=== PATIENT | female | born 1965 | race Hispanic/Latino ===

== ENCOUNTER 2020-12-15 13:09 | Emergency (ER) | payer BC ==
[2020-12-15] MEDS ORDERED: ONDANSETRON 4 MG/2 ML VIAL ONE (14:55)
[2020-12-15] MEDS ORDERED: METOCLOPRAMIDE 10 MG/2mL INJ ONE (14:55)
[2020-12-15] MEDS ORDERED: METHYLPREDNISOLONE 40 MG INJ ONE (14:56)
[2020-12-15] MEDS ORDERED: NA CHLORIDE 0.9% 500 ML ONE (14:56)
[2020-12-15 15:02] LABS: Absolute Lymphocytes (CBC) 1.2 K/uL (0.7-4.9); Basophils % 0.4 % (0-1.3); Hematocrit 42.6 % (36.0-45.0); Lymphocytes % 20.9 % (15.3-44.8); MPV 9.5 fL (7.6-11.3)
[2020-12-15 15:07] LABS: Protime INR 1.04
--- NOTE | 2020-12-15 15:17 | RAD REPORT ---
EXAM DESCRIPTION: RAD - Chest Single View - 12/15/2020 2:46 pm CLINICAL HISTORY: SOB, positive COVID test COMPARISON: None TECHNIQUE: AP portable chest image was obtained 12/15/2020 2:46 pm . FINDINGS: Lung volumes are low. Patchy interstitial and alveolar opacification present in the mid an d upper lung field on the left. There is trace right upper lobe airspace opacification. Trachea is mi dline. Heart and vasculature are normal. No measurable pleural effusion and no pneumothorax. No acute bony abnormality seen. No acute aortic findings suspected. IMPRESSION: Mild bilateral COVID-19 pneumonia pattern.
[2020-12-15 15:21] LABS: ALT/SGPT 37 U/L (12-78); AST/SGOT 44 U/L (15-37); Albumin 3.6 g/dL (3.4-5.0); Alkaline Phosphatase 147 U/L (45-117); BUN Blood Urea Nitrogen 9 mg/dL (7-18); Bicarbonate 29 mmol/L (21-32); Bilirubin Direct 0.1 mg/dL (0-0.2); Bilirubin Total 0.4 mg/dL (0.2-1.0); Glucose Level 97 mg/dL (74-106); Magnesium 2.4 mg/dL (1.8-2.4); NT PRO-BNP 29 pg/mL (<125); Potassium 3.1 mmol/L (3.5-5.1); Protein, Total 7.8 g/dL (6.4-8.2); Sodium Level 139 mmol/L (136-145); Troponin (Emerg Dept Use Only) < 0.02 ng/mL (0.0-0.045)
[2020-12-15] MEDS ORDERED: POTASSIUM 25 MEQ EFFERV TAB ONE (15:47)
[2020-12-15] MEDS ORDERED: CEFTRIAXONE/SWI 1gm 1 GM/10 ML SYR ONE (15:47)
--- NOTE | 2020-12-15 16:42 | RAD REPORT ---
EXAM DESCRIPTION: CT - Chest For Pe Angio - 12/15/2020 4:22 pm CLINICAL HISTORY: SOB COMPARISON: Chest Single View dated 12/15/2020 TECHNIQUE: Dynamically enhanced 3 mm thick images of the chest were obtained during administration o f approximately 150mL Isovue 370 IV contrast. Coronal and oblique MIP reconstruction images were gene rated and reviewed. Exam utilizes a protocol to evaluate the pulmonary arterial tree. All CT scans are performed using dose optimization technique as appropriate and may include automated exposure control or mA/KV adjustment according to patient size. FINDINGS: No pulmonary emboli are identified. The aorta as imaged shows no acute or suspicious finding. No pericardial thickening or effusion. Ground-glass opacities are scattered in the lung vergara matching the chest film. In the lateral mid r ight lung field (image 31/76) there is a more rounded nodular 10 millimeter finding. This is in all l ikelihood part of the patient's COVID-19 pneumonia findings. However, an unrelated solitary pulmonary nodule cannot be excluded. A follow-up examination in approximately 4-6 months could be performed to monitor this finding. This would allow resolution of the pneumonia findings. No pleural effusion or pleural thickening. No mediastinal or hilar suspicious masses. No chest wall masses or abnormal axillary lymphadenopathy. IMPRESSION: No pulmonary emboli identified. Mild to moderate COVID-19 pneumonia findings. A 10 millimeter nodular focus right midlung field is probably part of the pneumonia process. However, a discrete solitary pulmonary nodule cannot be excluded and follow-up CT chest imaging in 4-6 months would be recommended.
--- NOTE | 2020-12-15 17:17 | ER ---
Nurse's Notes [facility] Name: Latrice Reyes Age: 55 yrs Sex: Female : 1965 Arrival Date: 12/15/2020 Time: 13:14 Bed 6 Private MD: Diagnosis: Pneumonia due to other specified infectious organisms;Coronavirus infection, unspecified Presentation: 12/15 13:44 Chief complaint: Patient states: tested Covid+ yesterday at the urgent care. Symptoms ca1 started 12/10/2020. S/S diarrhea, N/V, headache, cough, SOB, fatigue, fever. S/S just getting worse. Coronavirus screen: Client denies travel out of the [place] in the last 14 days. Client reports previous positive COVID test result. Date of collection: December 14, 2020 Staff notified of need for isolation. Ebola Screen: Patient negative for fever greater than or equal to 101.5 degrees Fahrenheit, and additional compatible Ebola Virus Disease symptoms Patient denies exposure to infectious person. Patient denies travel to an Ebola-affected area in the 21 days before illness onset. No symptoms or risks identified at this time. Initial Sepsis Screen: Does the patient meet any 2 criteria? No. Patient's initial sepsis screen is negative. Does the patient have a suspected source of infection? No. Patient's initial sepsis screen is negative. Risk Assessment: Do you want to hurt yourself or someone else? Patient reports no desire to harm self or others. Onset of symptoms was December 15, 2020. 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 - Social history:: Smoking status: Patient denies any tobacco usage or history of. Screenin:58 Abuse screen: Denies threats or abuse. Denies injuries from another. Nutritional iw screening: No deficits noted. Tuberculosis screening: No symptoms or risk factors identified. Fall Risk IV access (20 points). Assessment: 14:57 General: Appears in no apparent distress. Behavior is calm, cooperative. General: iw Reports fever for feeling ill for. Pain: Complains of pain in head. Neuro: Level of Consciousness is awake, alert, obeys commands, Oriented to person, place, time, situation, Moves all extremities. Cardiovascular: Reports chest pain, shortness of breath, Rhythm is regular. Respiratory: Reports shortness of breath on exertion cough that is Airway is patent Respiratory effort is even, unlabored, Breath sounds are clear bilaterally. GI: Reports nausea, vomiting. Derm: Skin is intact, is healthy with good turgor. Musculoskeletal: Range of motion: intact in all extremities. 15:40 Reassessment: Patient appears in no apparent distress at this time. Patient and/or iw family updated on plan of care and expected duration. Pain level reassessed. Patient is alert, oriented x 3, equal unlabored respirations, skin warm/dry/pink. Vital Signs: 13:44 BP 137 / 95; Pulse 93; Resp 16 S; Temp 97.5; Pulse Ox 97% on R/A; Weight 84.37 kg (R); ca1 Height 5 ft. (152.40 cm) (R); 15:40 BP 124 / 98; Pulse 89; Resp 18 S; Pulse Ox 98% on R/A; iw 13:44 Body Mass Index 36.33 (84.37 kg, 152.40 cm) ca1 ED Course: 13:14 Patient arrived in ED. ag5 13:47 Triage completed. ca1 13:48 Arm band placed on right wrist. ca1 13:51 Loki Carty PA is PHCP. cp 13:51 Loki Esteves MD is Attending Physician. cp 14:46 XRAY Chest (1 view) In Process Unspecified. EDMS 14:55 Cat Robbins, RN is Primary Nurse. iw 14:58 Initial lab(s) drawn, by me, sent to lab. Inserted saline lock: 20 gauge in left iw antecubital area, using aseptic technique. Blood collected. 16:22 CT Chest For PE Angio In Process Unspecified. EDMS Administered Medications: 14:55 Drug: SOLU-Medrol 80 mg Route: IVP; Site: left antecubital; iw 14:56 Drug: Zofran (Ondansetron) 4 mg Route: IVP; Site: left antecubital; iw 14:56 Drug: Reglan 10 mg Route: IVP; Site: left antecubital; iw 14:56 Drug: NS 0.9% 500 ml Route: IV; Rate: bolus; Site: left antecubital; iw 15:43 Drug: Rocephin 1 grams Route: IV; Rate: calculated rate; Site: left antecubital; iw 16:00 Follow up: IV Status: Completed infusion iw 15:43 Drug: Potassium Effervescent Tablet 50 mEq Route: PO; iw 16:15 Follow up: Response: No adverse reaction iw 17:26 Not Given (Patient ): NS 0.9% 1000 ml IV at 1 bolus Per protocol; 1000 mL bolus cp Outcome: 17:17 Discharge ordered by MD. cp 17:36 Patient left the ED. iw Signatures: Dispatcher [employer] EDCat Kirkpatrick RN RN iw Page, Corey, PA PA cp Acob, Cheryl, RN RN ca1 Gaskin, Ajare ag5
--- NOTE | 2020-12-15 17:18 | EDPHYS ---
Physician Documentation [facility] Name: Latrice Reyes Age: 55 yrs Sex: Female : 1965 Arrival Date: 12/15/2020 Time: 13:14 Bed 6 Private MD: ED Physician Loki Esteves HPI: 12/15 14:10 This 55 yrs old Female presents to ER via Ambulatory with complaints of cp Shortness Of Breath, COVID+. 14:10 The patient has shortness of breath at rest. cp 14:10 Onset: The symptoms/episode began/occurred last week, and became worse today. cp 14:10 Duration: The symptoms are continuous, and are steadily getting worse. Associated signs cp and symptoms: Pertinent positives: chest pain, non-productive cough, fever, diarrhea, Pertinent negatives: diaphoresis, dizziness. Severity of symptoms: in the emergency department the symptoms are unchanged despite home interventions. Patient reports she tested positive for COVID-19 yesterday at local urgent care. Currently taking otc medications for cough. 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 - Social history:: Smoking status: Patient denies any tobacco usage or history of. ROS: 14:15 Constitutional: Negative for body aches, chills, fever, poor PO intake. cp 14:15 Eyes: Negative for injury, pain, redness, and discharge. cp 14:15 ENT: Negative for ear pain, sore throat, difficulty swallowing, difficulty handling secretions. 14:15 Cardiovascular: Positive for chest pain, with cough, Negative for edema, palpitations. 14:15 Respiratory: Positive for cough, "sounds productive", shortness of breath, at rest. Negative for wheezing. 14:15 Abdomen/GI: Positive for diarrhea, Negative for vomiting, constipation. 14:15 : Negative for urinary symptoms. 14:15 Skin: Negative for rash. 14:15 Neuro: Negative for altered mental status, headache, weakness. 14:15 All other systems are negative. Exam: 14:20 Constitutional: The patient appears in no acute distress, alert, awake, cp non-diaphoretic, non-toxic, well developed, well nourished. 14:20 Head/Face: Normocephalic, atraumatic. cp 14:20 Eyes: Periorbital structures: appear normal, Conjunctiva: normal, no exudate, no injection, Sclera: no appreciated abnormality, Lids and lashes: appear normal, bilaterally. 14:20 ENT: External ear(s): are unremarkable, Nose: is normal, Mouth: Lips: moist, Oral mucosa: pink and intact, moist, Posterior pharynx: Airway: no evidence of obstruction, patent, Tonsils: are normal in appearance, erythema, is not appreciated, exudate, is not appreciated. 14:20 Neck: ROM/movement: is normal, is supple, without pain, no range of motions limitations, no meningismus. 14:20 Chest/axilla: Inspection: normal, Palpation: is normal, no crepitus, no tenderness. 14:20 Cardiovascular: Rate: normal, Rhythm: regular, Edema: is not appreciated, JVD: is not appreciated. 14:20 Respiratory: the patient does not display signs of respiratory distress, Respirations: normal, no use of accessory muscles, no retractions, labored breathing, is not present, Breath sounds: bronchial sounds, that are mild, are heard diffusely, decreased breath sounds, are not appreciated, wheezing: is not appreciated. 14:20 Abdomen/GI: Inspection: abdomen appears normal, Palpation: abdomen is soft and non-tender, in all quadrants. 14:20 Back: pain, is absent, ROM is normal. 14:20 Neuro: Orientation: to person, place \\T\\ time. Mentation: is normal, Motor: moves all fours, strength is normal. 14:40 ECG was reviewed by the Attending Physician. cp Vital Signs: 13:44 BP 137 / 95; Pulse 93; Resp 16 S; Temp 97.5; Pulse Ox 97% on R/A; Weight 84.37 kg (R); ca1 Height 5 ft. (152.40 cm) (R); 15:40 BP 124 / 98; Pulse 89; Resp 18 S; Pulse Ox 98% on R/A; iw 13:44 Body Mass Index 36.33 (84.37 kg, 152.40 cm) ca1 MDM: 13:56 Patient medically screened. cp 15:00 Differential diagnosis: Bronchitis Myocardial Infarction pneumonia, pulmonary edema, cp Pulmonary Embolism Sepsis Unstable Angina. 17:15 Data reviewed: vital signs, nurses notes, lab test result(s), EKG, radiologic studies, cp CT scan, plain films. 17:15 Test interpretation: by ED physician or midlevel provider: ECG, plain radiologic cp studies. Counseling: I had a detailed discussion with the patient and/or guardian regarding: the historical points, exam findings, and any diagnostic results supporting the discharge/admit diagnosis, lab results, radiology results, the need for outpatient follow up, a family practitioner, to return to the emergency department if symptoms worsen or persist or if there are any questions or concerns that arise at home. Response to treatment: the patient's symptoms have markedly improved after treatment. ED course: VSS. Patient appears nontoxic and no signs of respiratory distress. Oxygen sats 98% on RA after treatment. Will discharge to home for continued monitoring. 12/15 14:08 Order name: Basic Metabolic Panel 12/15 14:08 Order name: CBC with Diff; Complete Time: 15:08 12/15 14:08 Order name: LFT's; Complete Time: 15:23 12/15 15:29 Interpretation: Normal except: AST 44; ALK 147; GLOB 4.2; A/G 0.9. 12/15 14:08 Order name: Magnesium; Complete Time: 15:23 12/15 14:08 Order name: NT PRO-BNP; Complete Time: 15:23 12/15 14:08 Order name: PT-INR; Complete Time: 15:21 12/15 14:08 Order name: Troponin (emerg Dept Use Only); Complete Time: 15:23 12/15 14:08 Order name: XRAY Chest (1 view); Complete Time: 15:21 12/15 15:21 Interpretation: Report reviewed. 12/15 14:09 Order name: Basic Metabolic Panel; Complete Time: 15:23 EDID 12/15 15:29 Interpretation: Normal except: K 3.1; GFR 64. 12/15 15:26 Order name: D-Dimer; Complete Time: 16:58 cp 12/15 15:26 Order name: LAB Add On 12/15 15:59 Order name: CT Chest For PE Angio; Complete Time: 16:58 cp 12/15 14:08 Order name: EKG; Complete Time: 14:09 cp 12/15 14:08 Order name: Cardiac monitoring; Complete Time: 14:56 cp 12/15 14:08 Order name: EKG - Nurse/Tech; Complete Time: 14:57 cp 12/15 14:08 Order name: IV Saline Lock; Complete Time: 14:57 cp 12/15 14:08 Order name: Labs collected and sent; Complete Time: 14:57 cp 12/15 14:08 Order name: O2 Per Protocol; Complete Time: 14:57 cp 12/15 14:08 Order name: O2 Sat Monitoring; Complete Time: 14:57 cp 12/15 17:11 Order name: Diet Regular; Complete Time: 17:11 cp EC:40 Rate is 83 beats/min. Rhythm is regular. AK interval is normal. QRS interval is normal. cp T waves are Inverted in leads III, aVR. Interpreted by me. Reviewed by me. Administered Medications: 14:55 Drug: SOLU-Medrol 80 mg Route: IVP; Site: left antecubital; iw 14:56 Drug: Zofran (Ondansetron) 4 mg Route: IVP; Site: left antecubital; iw 14:56 Drug: Reglan 10 mg Route: IVP; Site: left antecubital; iw 14:56 Drug: NS 0.9% 500 ml Route: IV; Rate: bolus; Site: left antecubital; iw 15:43 Drug: Rocephin 1 grams Route: IV; Rate: calculated rate; Site: left antecubital; iw 16:00 Follow up: IV Status: Completed infusion iw 15:43 Drug: Potassium Effervescent Tablet 50 mEq Route: PO; iw 16:15 Follow up: Response: No adverse reaction iw 17:26 Not Given (Patient ): NS 0.9% 1000 ml IV at 1 bolus Per protocol; 1000 mL bolus cp Disposition: 12/16 06:25 Co-signature as Attending Physician, Loki TERRY I agree with the assessment and lucia plan of care. Disposition: 12/15/20 17:17 Discharged to Home. Impression: Pneumonia due to other specified infectious organisms, Coronavirus infection, unspecified. - Condition is Stable. - Discharge Instructions: Community-Acquired Pneumonia, Adult, COVID-19. - Prescriptions for Augmentin 875- 125 mg Oral Tablet - take 1 tablet by ORAL route every 12 hours for 10 days; 20 tablet. Albuterol Sulfate 2.5 mg /3 mL (0.083 %) Inhalation Solution for Nebulization - inhale 1 unit by NEBULIZATION route every 8 hours As needed; 1 box. Prednisone 20 mg Oral Tablet - take 1 tablet by ORAL route every 12 hours for 5 days then take 1/2 tablet every 12 hours for 5 days; 15 tablet. - Medication Reconciliation Form, Thank You Letter, Antibiotic Education, Prescription Opioid Use form. - Follow up: Private Physician; When: 2 - 3 days; Reason: Worsening of condition. - Problem is new. - Symptoms have improved. Signatures: Dispatcher [employer] EDMS Loik Esteves MD MD cha Williams, Irene, RN RN Loki Yepez PA PA cp Mitali Alejandro RN RN ca1 Corrections: (The following items were deleted from the chart) 12/15 17:36 17:17 12/15/2020 17:17 Discharged to Home. Impression: Pneumonia due to other specified iw infectious organisms; Coronavirus infection, unspecified. Condition is Stable. Forms are Medication Reconciliation Form, Thank You Letter, Antibiotic Education, Prescription Opioid Use. Follow up: Private Physician; When: 2 - 3 days; Reason: Worsening of condition. Problem is new. Symptoms have improved. cp
[2020-12-15] MEDS ORDERED: NA CHLORIDE 0.9% 1,000 ML ONE (17:37)
[2020-12-15 17:41] VITALS: TEMP 97.5
[2020-12-15 17:42] VITALS: BP 124/98; O2SAT 98
--- NOTE | 2020-12-16 12:11 | EKG ---
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
== END 2020-12-15 17:36 | disposition home or self-care (01) ==
LOC: ER 13:09
DX: U07.1 COVID-19 (principal); J12.82 Pneumonia due to coronavirus disease 2019
CPT/HCPCS: 96365; 93005; 85025; 80048; 36415; 83735; 85610; 85379; 80076; 84484; 83880; 71275; 71045; 96375; 99284; Q9967; J2765; J0696; J7040; J7030; J2405; J2920

== ENCOUNTER 2020-12-18 06:11 | Inpatient (IN) | payer BC ==
--- OUTSIDE RECORDS SUMMARY | 2020-12-18 06:14 | XMS REPORT | Clinical Summary ---
:1965 Author Organization [facility] Address [address] [place] [address] Care Team Providers Name Role Phone Conrad Delgado MD Primary Care Provider Allergies No Known Allergies Medications Medication Sig Dispensed Refills Start Date End Date Status thyroid, pork, 30 mg Take 30 mg by 0 Active Tab mouth daily. estrogens, Take 1 tablet by 0 Ac tive conjugated,-methyltest mouth daily. osterone (ESTRATEST) 1.25-2.5 mg per tablet Active Problems Not on file Social History Tobacco Use Types Packs/Day Years Used Date Never Smoker Alcohol Use Drinks/Week oz/Week Comments No Sex Assigned at Date Recorded Not on file Last Filed Vital Signs Not on file Plan of Treatment Not on file Results Not on fileafter 12/18/2019 Insurance Payer Benefit Plan / Subscriber ID Effective Dates Phone Addre ss Type Group BLUE BCBS PPO POS [id number] 2015-Prese [phone] [id number] PPO CROSS/BLUE EPO CHOICE nt 2 [facility] [id number] (Work) [id number]
[2020-12-18 07:12] LABS: Basophils % 0.3 % (0-1.3); Hematocrit 39.9 % (36.0-45.0); Lymphocytes % 17.3 % (15.3-44.8); MPV 9.1 fL (7.6-11.3); RBC Red Blood Cell Count 4.47 M/uL (3.86-4.86)
[2020-12-18 07:14] LABS: Protime INR 0.99
[2020-12-18] MEDS ORDERED: ASPIRIN 81 MG CHEWABLE TABLET ONE (07:30)
[2020-12-18] MEDS ORDERED: CEFTRIAXONE/SWI 1gm 1 GM/10 ML SYR ONE (07:30)
[2020-12-18] MEDS ORDERED: FAMOTIDINE 20 MG/2 ML VIAL IV ONE (07:30)
[2020-12-18] MEDS ORDERED: ALBUTEROL INHALER 60 PUFF/8 GM IH ONE (07:30)
[2020-12-18] MEDS ORDERED: dexAMETHasone 10 MG/ML VIAL ONE (07:30)
--- NOTE | 2020-12-18 07:30 | EDPHYS ---
Physician Documentation [facility] Name: Latrice Reyes Age: 55 yrs Sex: Female : 1965 Arrival Date: 12/18/2020 Time: 06:15 Bed 14 Private MD: MARIS Physician Loki Esteves HPI: 12/18 07:23 This 55 yrs old Female presents to ER via Ambulatory with complaints of lucia Breathing Difficulty, Diarrhea, +covid test,pneumonia. 07:23 The patient has shortness of breath at rest. Onset: The symptoms/episode began/occurred lucia 4 day(s) ago. Duration: The symptoms are continuous, and are steadily getting worse. The patient's shortness of breath is aggravated by coughing, supine position, talking, walking, is alleviated by rest, sitting up, application of supplemental oxygen. Associated signs and symptoms: The patient has no apparent associated signs or symptoms. Severity of symptoms: At their worst the symptoms were moderate today. The patient has not experienced similar symptoms in the past. STONE HAND: 08:09 LMP N/A - Hysterectomy jl7 Historical: - Allergies: 06:22 No Known Allergies; sg - Home Meds: 06:22 Wellbutrin Oral [Active]; sg - PMHx: 06:22 Depression; sg - PSHx: 06:21 Spine Surgery; Hysterectomy; Cholecystectomy; Hernia repair; sg - Immunization history:: Adult Immunizations not up to date. - Social history:: Smoking status: Patient denies any tobacco usage or history of. - Family history:: not pertinent. ROS: 07:23 Constitutional: Negative for fever, chills, and weight loss, Eyes: Negative for injury, lucia pain, redness, and discharge, ENT: Negative for injury, pain, and discharge, Neck: Negative for injury, pain, and swelling, Cardiovascular: Negative for chest pain, palpitations, and edema, Abdomen/GI: Negative for abdominal pain, nausea, vomiting, diarrhea, and constipation, Back: Negative for injury and pain, : Negative for injury, bleeding, discharge, and swelling, MS/Extremity: Negative for injury and deformity, Skin: Negative for injury, rash, and discoloration, Neuro: Negative for headache, weakness, numbness, tingling, and seizure, Psych: Negative for depression, anxiety, suicide ideation, homicidal ideation, and hallucinations, Allergy/Immunology: Negative for hives, rash, and allergies, Endocrine: Negative for neck swelling, polydipsia, polyuria, polyphagia, and marked weight changes. 07:23 Respiratory: Positive for cough, shortness of breath, at rest. 07:23 Abdomen/GI: Positive for diarrhea. Exam: 07:23 Constitutional: This is a well developed, well nourished patient who is awake, alert, lucia and in no acute distress. Head/Face: Normocephalic, atraumatic. Eyes: Pupils equal round and reactive to light, extra-ocular motions intact. Lids and lashes normal. Conjunctiva and sclera are non-icteric and not injected. Cornea within normal limits. Periorbital areas with no swelling, redness, or edema. ENT: Nares patent. No nasal discharge, no septal abnormalities noted. Tympanic membranes are normal and external auditory canals are clear. Oropharynx with no redness, swelling, or masses, exudates, or evidence of obstruction, uvula midline. Mucous membranes moist. Neck: Trachea midline, no thyromegaly or masses palpated, and no cervical lymphadenopathy. Supple, full range of motion without nuchal rigidity, or vertebral point tenderness. No Meningismus. Chest/axilla: Normal chest wall appearance and motion. Nontender with no deformity. No lesions are appreciated. Cardiovascular: Regular rate and rhythm with a normal S1 and S2. No gallops, murmurs, or rubs. Normal PMI, no JVD. No pulse deficits. Abdomen/GI: Soft, non-tender, with normal bowel sounds. No distension or tympany. No guarding or rebound. No evidence of tenderness throughout. Back: No spinal tenderness. No costovertebral tenderness. Full range of motion. Skin: Warm, dry with normal turgor. Normal color with no rashes, no lesions, and no evidence of cellulitis. MS/ Extremity: Pulses equal, no cyanosis. Neurovascular intact. Full, normal range of motion. Neuro: Awake and alert, GCS 15, oriented to person, place, time, and situation. Cranial nerves II-XII grossly intact. Motor strength 5/5 in all extremities. Sensory grossly intact. Cerebellar exam normal. Normal gait. Psych: Awake, alert, with orientation to person, place and time. Behavior, mood, and affect are within normal limits. 07:23 ECG was reviewed by the Attending Physician. 07:23 Respiratory: mild respiratory distress is noted, Respirations: labored breathing, that is mild, Breath sounds: bronchial sounds, rhonchi, that are mild, are heard diffusely, + upper airway congestion. wheezing: expiratory Respiratory rate: 24 Vital Signs: 06:32 BP 148 / 78; Pulse 83; Resp 22; Temp 98.2; Pulse Ox 93% on R/A; 07:43 BP 127 / 66; Pulse 83; Resp 25; Pulse Ox 100% 2 lpm ; Weight 84.37 kg; jl7 09:00 BP 130 / 64; Pulse 81; Resp 24; Pulse Ox 99% 2 lpm ; jl7 10:00 BP 112 / 72; Pulse 81; Resp 24; Pulse Ox 99% on 2 lpm NC; jl7 11:30 BP 110 / 54; Pulse 84; Resp 23; Pulse Ox 97% on 2 lpm NC; 7 14:36 Height 5 ft. (152.40 cm); 7 14:36 Body Mass Index 36.33 (84.37 kg, 152.40 cm) 7 MDM: 06:34 Patient medically screened. lucia 07:26 Differential diagnosis: CHF exacerbation, pneumonia, pulmonary edema, Pulmonary lucia Embolism reactive airway disease. Antibiotic administration: Rocephin and Zithromax given. The patient's Wells Deep Vein Thrombosis Score was calculated as follows: Total Score: 0-2 Pts- Low Risk. The patient's pulmonary embolism risk score was calculated as follows: Total Score: 0-2 points. This patient was found to be at low risk for a pulmonary embolism by using the Well's assessment criteria. Immunization status: Influenza vaccine: Data reviewed: vital signs, nurses notes, lab test result(s), EKG, radiologic studies, CT scan, plain films. Data interpreted: electronic device monitor: rate is 83 beats/min, rhythm is regular, Pulse oximetry: on room air is 93 %. Test interpretation: by ED physician or midlevel provider: ECG, plain radiologic studies. Counseling: I had a detailed discussion with the patient and/or guardian regarding: the historical points, exam findings, and any diagnostic results supporting the discharge/admit diagnosis, lab results, radiology results, the need for further work-up and treatment in the hospital. 12/18 06:46 Order name: Basic Metabolic Panel [facility] 12/18 06:46 Order name: CBC with Diff [facility] 12/18 06:46 Order name: LFT's [facility] 12/18 06:46 Order name: Magnesium [facility] 12/18 06:46 Order name: NT PRO-BNP [facility] 12/18 06:46 Order name: PT-INR [facility] 12/18 06:46 Order name: Troponin (emerg Dept Use Only) [facility] 12/18 06:46 Order name: Blood Culture Adult (2) [facility] 12/18 06:46 Order name: Urine Culture [facility] 12/18 06:46 Order name: Lipase [facility] 12/18 06:46 Order name: Ferritin [facility] 12/18 06:46 Order name: CRP [facility] 12/18 07:15 Order name: CBC with Automated Diff; Complete Time: 07:22 EDMS 12/18 07:16 Order name: Protime (+INR); Complete Time: 07:22 EDMS 12/18 06:46 Order name: XRAY Chest (1 view) [facility] 12/18 07:41 Order name: Urine Dipstick--Ancillary (enter results) 12/18 07:47 Order name: Basic Metabolic Panel; Complete Time: 08:27 EDMS 12/18 07:47 Order name: Liver (Hepatic) Function; Complete Time: 08:27 EDMS 12/18 07:47 Order name: Troponin (Emerg Dept Use Only); Complete Time: 08:27 EDMS 12/18 07:47 Order name: NT PRO-BNP; Complete Time: 08:27 EDMS 12/18 07:47 Order name: C-Reactive Protein; Complete Time: 08:27 EDMS 12/18 07:47 Order name: Magnesium; Complete Time: 08:27 EDMS 12/18 07:47 Order name: Lipase; Complete Time: 08:27 EDMS 12/18 07:47 Order name: Ferritin; Complete Time: 08:27 EDMS 12/18 08:49 Order name: Urine Dipstick-Ancillary EDMT 12/18 09:39 Order name: RAD EDMT 12/18 10:57 Order name: Procalcitonin EDMT 12/18 15:46 Order name: Glucose, Ancillary Testing EDMS 12/18 17:47 Order name: Glucose, Ancillary Testing EDMT 12/18 06:46 Order name: EKG; Complete Time: 06:47 [facility] 12/18 06:46 Order name: Cardiac monitoring; Complete Time: 07:05 [facility] 12/18 06:46 Order name: EKG - Nurse/Tech; Complete Time: 07:05 [facility] 12/18 06:46 Order name: IV Saline Lock; Complete Time: 07:05 [facility] 12/18 06:46 Order name: Labs collected and sent; Complete Time: 07:05 [facility] 12/18 06:46 Order name: O2 Per Protocol; Complete Time: 07:05 [facility] 12/18 06:46 Order name: O2 Sat Monitoring; Complete Time: 07:05 [facility] 12/18 06:46 Order name: Urine Dipstick-Ancillary (obtain specimen); Complete Time: 09:46 [facility] 12/18 13:50 Order name: Diet Ada 2000 [place]; Complete Time: 13:50 [facility] EC:23 Rate is 85 beats/min. Rhythm is regular. QRS [place] is Normal. WA interval is normal. QRS lucia interval is normal. QT interval is normal. No Q waves. T waves are Normal. No ST changes noted. Clinical impression: Normal ECG and No evidence of ischemia. Interpreted by me. Reviewed by me. Administered Medications: 07:20 Drug: NS 0.9% 1000 ml Route: IV; Rate: 1 bolus; Site: right antecubital; jl7 08:45 Follow up: Response: No adverse reaction; IV Status: Completed infusion; IV Intake: jl7 1000ml 07:20 Drug: Rocephin 1 grams Route: IV; Rate: per protocol; Site: right antecubital; jl7 07:23 Follow up: Response: No adverse reaction; IV Status: Completed infusion jl7 07:25 Drug: Decadron - Dexamethasone 10 mg Route: IVP; Site: right antecubital; jl7 07:27 Follow up: Response: No adverse reaction jl7 07:28 Drug: Aspirin 162 mg Route: PO; jl7 07:30 Follow up: Response: No adverse reaction jl7 07:30 Drug: Pepcid 20 mg Route: IVP; Site: right antecubital; jl7 07:32 Follow up: Response: No adverse reaction jl7 07:35 Drug: Albuterol HFA Inhaler 4 puffs Route: Inhalation; jl7 07:37 Follow up: Response: No adverse reaction jl7 09:43 Drug: NS 0.9% with KCl 20 mEq/L 1000 ml Route: IV; Rate: 125 ml/hr; Site: left hand; jl7 13:50 Follow up: Response: No adverse reaction; IV Status: Infusion continued upon admission jl7 09:44 Drug: Zithromax 500 mg Route: IVPB; Infused Over: 1 hrs; Site: left hand; jl7 10:45 Follow up: Response: No adverse reaction; IV Status: Completed infusion jl7 09:44 Drug: Ivermectin 12 mg Route: PO; jl7 13:50 Follow up: Response: No adverse reaction jl7 09:45 Drug: Lovenox 1 mg/kg Route: Sub-Q; Site: abdomen; jl7 13:50 Follow up: Response: No adverse reaction [facility] Disposition: 12/18/20 07:30 Hospitalization ordered by Narayan Ferro for Observation. Preliminary diagnosis are Dyspnea, Hypoxemia, SARS-associated coronavirus as the cause of diseases classified elsewhere - covid 19, Diarrhea, unspecified, Hypokalemia. - Bed requested for Telemetry/MedSurg (observation). - Status is Observation. lp1 - Condition is Fair. - Problem is new. - Symptoms have improved. Signatures: Dispatcher [employer] EDMS Kristel Friedman RN Indra Solomon RN RN sg Anderson, Corey, MD MD cha Pena, Laura RN HAMMAD lp1 Dwight Martínez RN RN jl7 Jennifer Lopez Corrections: (The following items were deleted from the chart) 07:36 07:30 Hospitalization Ordered by Narayan Ferro MD for Inpatient Admission. Preliminary [facility] diagnosis is Dyspnea; Hypoxemia; SARS-associated coronavirus as the cause of diseases classified elsewhere - covid 19; Diarrhea, unspecified. Bed requested for Telemetry/MedSurg (Inpatient). Status is Inpatient Admission. Condition is Fair. Problem is new. Symptoms have improved. [facility] 08:30 07:36 12/18/2020 07:30 Hospitalization Ordered by Narayan Ferro MD for Observation. [facility] Preliminary diagnosis is Dyspnea; Hypoxemia; SARS-associated coronavirus as the cause of diseases classified elsewhere - covid 19; Diarrhea, unspecified. Bed requested for Telemetry/MedSurg (observation). Status is Observation. Condition is Fair. Problem is new. Symptoms have improved. [facility] 09:47 06:46 Urine Test ordered. [place] [id number] 14:25 08:30 12/18/2020 07:30 Hospitalization Ordered by Narayan Ferro MD for Observation. eb Preliminary diagnosis is Dyspnea; Hypoxemia; SARS-associated coronavirus as the cause of diseases classified elsewhere - covid 19; Diarrhea, unspecified; Hypokalemia. Bed requested for Telemetry/MedSurg (observation). Status is Observation. Condition is Fair. Problem is new. Symptoms have improved. lucia 18:56 14:25 12/18/2020 07:30 Hospitalization Ordered by Narayan Ferro MD for Observation. sv Preliminary diagnosis is Dyspnea; Hypoxemia; SARS-associated coronavirus as the cause of diseases classified elsewhere - covid 19; Diarrhea, unspecified; Hypokalemia. Bed requested for [facility] ER HOLD. Status is Observation. Condition is Fair. Problem is new. Symptoms have improved. eb 19:57 18:56 12/18/2020 07:30 Hospitalization Ordered by Narayan Ferro MD for Observation. lp1 Preliminary diagnosis is Dyspnea; Hypoxemia; SARS-associated coronavirus as the cause of diseases classified elsewhere - covid 19; Diarrhea, unspecified; Hypokalemia. Bed requested for Telemetry/MedSurg (observation). Status is Observation. Condition is Fair. Problem is new. Symptoms have improved. sv
--- NOTE | 2020-12-18 07:30 | ER ---
Nurse's Notes [facility] Name: Latrice Reyes Age: 55 yrs Sex: Female : 1965 Arrival Date: 12/18/2020 Time: 06:15 Bed 14 Private MD: Diagnosis: Dyspnea;Hypoxemia;SARS-associated coronavirus as the cause of diseases classified elsewhere-covid 19;Diarrhea, unspecified;Hypokalemia Presentation: 12/18 06:19 Chief complaint: Seen and dx with pneumonia on 12-15-20 and discharged to home with sg medications. reports shortness of breath continues, experiencing diarrhea as well. Coronavirus screen: Client presents with at least one sign or symptom that may indicate coronavirus-19. Standard/surgical mask placed on the client. Provider contacted for isolation considerations. Client reports previous positive COVID test result. Date of collection: December 14, 2020. Ebola Screen: Patient negative for fever greater than or equal to 101.5 degrees Fahrenheit, and additional compatible Ebola Virus Disease symptoms Patient denies exposure to infectious person. Patient denies travel to an Ebola-affected area in the 21 days before illness onset. No symptoms or risks identified at this time. Initial Sepsis Screen:. Initial Sepsis Screen: Does the patient meet any 2 criteria? RR > 20 per min. Does the patient have a suspected source of infection? Yes: Productive cough/pneumonia. Risk Assessment: Do you want to hurt yourself or someone else? Patient reports no desire to harm self or others. Onset of symptoms was December 18, 2020. Care prior to arrival: None. Transition of care: patient was not received from another setting of care. 06:19 Acuity: YEYO 3 06:19 Method Of Arrival: Ambulatory 06:27 Note reports home o2 readings of 88%. sg Triage Assessment: 06:34 Respiratory: Onset: The symptoms/episode began/occurred gradually, the patient has mild wh shortness of breath. 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 - Social history:: Smoking status: Patient denies any tobacco usage or history of. - Family history:: not pertinent. Screenin:32 Abuse screen: Denies threats or abuse. Denies injuries from another. Nutritional wh screening: No deficits noted. Tuberculosis screening: No symptoms or risk factors identified. Fall Risk None identified. Assessment: 06:33 General: Appears in no apparent distress. Behavior is calm, cooperative, appropriate wh for age. Pain: Denies pain. Neuro: Level of Consciousness is awake, alert, obeys commands, Oriented to person, place, time, situation, Appropriate for age. Cardiovascular: Heart tones S1 S2 Rhythm is regular. Respiratory: Reports shortness of breath cough that is Airway is patent Respiratory effort is unlabored, Respiratory pattern is tachypnea Breath sounds are clear bilaterally. GI: Abdomen is flat, non-distended, Reports diarrhea. : No signs and/or symptoms were reported regarding the genitourinary system. EENT: No signs and/or symptoms were reported regarding the EENT system. Derm: Skin is intact, is healthy with good turgor, Skin is pink, warm \T\ dry. normal. Musculoskeletal: Circulation, motion, and sensation intact. 07:30 Reassessment: Patient appears in no apparent distress at this time. No changes from jl7 previously documented assessment. Patient and/or family updated on plan of care and expected duration. Pain level reassessed. Patient is alert, oriented x 3, equal unlabored respirations, skin warm/dry/pink. 09:00 Reassessment: Patient appears in no apparent distress at this time. No changes from jl7 previously documented assessment. Patient and/or family updated on plan of care and expected duration. Pain level reassessed. Patient is alert, oriented x 3, equal unlabored respirations, skin warm/dry/pink. 10:00 Reassessment: Patient appears in no apparent distress at this time. No changes from jl7 previously documented assessment. Patient and/or family updated on plan of care and expected duration. Pain level reassessed. Patient is alert, oriented x 3, equal unlabored respirations, skin warm/dry/pink. 11:00 Reassessment: Patient appears in no apparent distress at this time. No changes from jl7 previously documented assessment. Patient and/or family updated on plan of care and expected duration. Pain level reassessed. Patient is alert, oriented x 3, equal unlabored respirations, skin warm/dry/pink. 12:00 Reassessment: Patient appears in no apparent distress at this time. No changes from 7 previously documented assessment. Patient and/or family updated on plan of care and expected duration. Pain level reassessed. Patient is alert, oriented x 3, equal unlabored respirations, skin warm/dry/pink. 13:00 Reassessment: Patient appears in no apparent distress at this time. No changes from 7 previously documented assessment. Patient and/or family updated on plan of care and expected duration. Pain level reassessed. Patient is alert, oriented x 3, equal unlabored respirations, skin warm/dry/pink. Vital Signs: 06:32 BP 148 / 78; Pulse 83; Resp 22; Temp 98.2; Pulse Ox 93% on R/A; wh 07:43 BP 127 / 66; Pulse 83; Resp 25; Pulse Ox 100% 2 lpm ; Weight 84.37 kg; jl7 09:00 BP 130 / 64; Pulse 81; Resp 24; Pulse Ox 99% 2 lpm ; jl7 10:00 BP 112 / 72; Pulse 81; Resp 24; Pulse Ox 99% on 2 lpm NC; jl7 11:30 BP 110 / 54; Pulse 84; Resp 23; Pulse Ox 97% on 2 lpm NC; jl7 14:36 Height 5 ft. (152.40 cm); jl7 14:36 Body Mass Index 36.33 (84.37 kg, 152.40 cm) 7 ED Course: 06:15 Patient arrived in ED. es 06:20 Triage completed. sg 06:21 Arm band placed on. sg 06:32 Aparna Carlisle, RN is Primary Nurse. wh 06:34 Loki Esteves MD is Attending Physician. lucia 06:34 Patient has correct armband on for positive identification. Placed in gown. Bed in low wh position. Call light in reach. Side rails up X 1. Pulse ox on. NIBP on. 07:16 Primary Nurse role handed off by Aparna Carlisle, HAMMAD eb 07:29 Narayan Ferro MD is Hospitalizing Provider. lucia 07:39 Dwight Martínez RN is Primary Nurse. 7 08:10 No provider procedures requiring assistance completed. Patient admitted, IV remains in jl7 place. intact, No redness/swelling at site. Administered Medications: 07:20 Drug: NS 0.9% 1000 ml Route: IV; Rate: 1 bolus; Site: right antecubital; jl7 08:45 Follow up: Response: No adverse reaction; IV Status: Completed infusion; IV Intake: jl7 1000ml 07:20 Drug: Rocephin 1 grams Route: IV; Rate: per protocol; Site: right antecubital; jl7 07:23 Follow up: Response: No adverse reaction; IV Status: Completed infusion jl7 07:25 Drug: Decadron - Dexamethasone 10 mg Route: IVP; Site: right antecubital; jl7 07:27 Follow up: Response: No adverse reaction jl7 07:28 Drug: Aspirin 162 mg Route: PO; jl7 07:30 Follow up: Response: No adverse reaction jl7 07:30 Drug: Pepcid 20 mg Route: IVP; Site: right antecubital; jl7 07:32 Follow up: Response: No adverse reaction jl7 07:35 Drug: Albuterol HFA Inhaler 4 puffs Route: Inhalation; jl7 07:37 Follow up: Response: No adverse reaction jl7 09:43 Drug: NS 0.9% with KCl 20 mEq/L 1000 ml Route: IV; Rate: 125 ml/hr; Site: left hand; jl7 13:50 Follow up: Response: No adverse reaction; IV Status: Infusion continued upon admission jl7 09:44 Drug: Zithromax 500 mg Route: IVPB; Infused Over: 1 hrs; Site: left hand; jl7 10:45 Follow up: Response: No adverse reaction; IV Status: Completed infusion jl7 09:44 Drug: Ivermectin 12 mg Route: PO; jl7 13:50 Follow up: Response: No adverse reaction jl7 09:45 Drug: Lovenox 1 mg/kg Route: Sub-Q; Site: abdomen; jl7 13:50 Follow up: Response: No adverse reaction jl7 Intake: 08:45 IV: 1000ml; Total: 1000ml. jl7 Outcome: 07:30 Decision to Hospitalize by Provider. [facility] 11:30 Condition: stable [facility] 11:30 Discharge instructions given to patient, Instructed on the need for admit, Demonstrated understanding of instructions. 13:59 Admitted to ER Hold. Please see [facility] for further documentation. jl7 19:57 Patient left the ED. lp1 Signatures: Indra Moran RN RN sg Loki Esteves MD MD cha Salyer, Edna es Pena, Laura RN RN lp1 Dwight Martínez RN RN jl7 Aparna Carlisle RN RN Jennifer Lopez Corrections: (The following items were deleted from the chart) 06:22 06:19 Coronavirus screen: Client presents with at least one sign or symptom that may sg indicate coronavirus-19. Standard/surgical mask placed on the client. Provider contacted for isolation considerations. Client reports previous positive COVID test result. 06:34 06:32 BP 148 / 78; Pulse 83bpm; Resp 20bpm; Pulse Ox 93% RA; Temp 98.2F; [facility] 13:59 11:30 Admitted to ER Hold. Please see [facility] for further documentation. jl7 jl7
[2020-12-18] MEDS ORDERED: NA CHLORIDE 0.9% 1,000 ML ONE (07:31)
[2020-12-18 07:46] LABS: ALT/SGPT 45 U/L (12-78); AST/SGOT 43 U/L (15-37); Albumin 3.2 g/dL (3.4-5.0); Alkaline Phosphatase 112 U/L (45-117); BUN Blood Urea Nitrogen 7 mg/dL (7-18); Bicarbonate 32 mmol/L (21-32); Bilirubin Direct 0.2 mg/dL (0-0.2); Bilirubin Total 0.5 mg/dL (0.2-1.0); Ferritin 157.1 ng/mL (8-388); Glucose Level 99 mg/dL (74-106); Lipase 41 U/L (73-393); Magnesium 2.2 mg/dL (1.8-2.4); NT PRO-BNP 91 pg/mL (<125); Potassium 3.3 mmol/L (3.5-5.1); Protein, Total 7.7 g/dL (6.4-8.2); Sodium Level 143 mmol/L (136-145); Troponin (Emerg Dept Use Only) < 0.02 ng/mL (0.0-0.045)
[2020-12-18] MEDS ORDERED: IVERMECTIN 3 MG TABLET PO ONE (08:00)
[2020-12-18] MEDS ORDERED: AZITHROMYCIN IV 500 MG in NA CHLORIDE 0.9% 250 ML IVPB ONE (08:00)
[2020-12-18] MEDS ORDERED: ENOXAPARIN 80 MG/0.8 ML SQ ONE (08:01)
[2020-12-18 08:49] LABS: Urine Blood 1+ (NEG); Urine Glucose NEGATIVE (NEG); Urine Protein 2+ (NEG); Urine Specific Gravity 1.025 (1.005-1.030); Urine pH 6.5 (5.0-7.0)
--- NOTE | 2020-12-18 09:06 | P.HP ---
Certification for Inpatient Patient admitted to: Observation With expected LOS: <2 Midnights Practitioner: I am a practitioner with admitting privileges, knowledge of patient current condition, hospital course, and medical plan of care. Services: Services provided to patient in accordance with Admission requirements found in Title 42 Section 412.3 of the Code of Federal Regulations Patient History Date of Service: 12/18/20 Reason for admission: hypoxia, COVID-19 pneumonia History of Present Illness: 55yo presents to ED a 2nd time this week with SOB/AGUILAR. COVid+ recently with worsening symptoms. Very short of breath with short ambulation. Feels like she can't take few steps without getting very winded. She reports she had elevated back in September and had mild symptoms with mostly diarrhea. Her entire family tested positive had similar courses. Now over the past week her in her entire family are now having more respiratory symptoms of coverage, and have all tested positive once again. Unclear if this is a reinfection/new infection. Patient had some improvement of symptoms when placed on O2 in ED. Labwork notable for mild hypokalemia, elevated CRP at 80, mildly elevated pro calcitonin. Patient reports diarrhea for the past few days as well. Denies dysuria, denies abdominal pain, denies chest pain. CXR with bilateral interstitial pulmonary opacities suggestive of COVID. The patient had a CTA done on 12/15 with negative PE, mild-moderate COVID pneumonia findings Allergies No Known Allergies Allergy (Unverified 12/18/20 07:43) Home Medications: Bupropion HCl [Wellbutrin Sr] 100 mg PO DAILY 12/18/20 Cholecalciferol (Vitamin D3) [Vitamin D3] 2,000 unit PO DAILY 12/18/20 - Past Medical/Surgical History -: Insulin resistance -: Depression -: Chronic back pain -: Hysterectomy -: -: Foot surgery -: "Back surgery" -: tummy tuck -: breast augmentation - Family History Family History: Reviewed- Non-Contributory - Family History Mother History Unknown: Yes -: Diabetes, Other (see notes) Notes: Thyroid Father History Unknown: Yes -: Diabetes Notes: Thyroid - Social History Smoking Status: Never smoker Alcohol use: No Place of Residence: Home Review of Systems 10-point ROS is otherwise unremarkable Physical Examination - Physical Exam General: Alert, In no apparent distress, Oriented x3 HEENT: Sclerae nonicteric Respiratory: Diminished (bilaterally), Crackles/rales (at bases) Cardiovascular: No edema, Regular rate/rhythm Gastrointestinal: Soft and benign, Non-distended, No tenderness Musculoskeletal: No tenderness Integumentary: No rashes, No significant lesion Neurological: Normal speech, Normal affect - Studies Laboratory Data (last 24 hrs) 12/18/20 06:55: PT 11.7, INR 0.99 12/18/20 06:55: WBC 5.9, Hgb 13.2, Hct 39.9, Plt Count 213 D 12/18/20 06:55: Sodium 143, Potassium 3.3 L, BUN 7, Creatinine 0.72, Glucose 99, Magnesium 2.2, Total Bilirubin 0.5, AST 43 H, ALT 45, Alkaline Phosphatase 112, Lipase 41 L Assessment and Plan - Advance Directives Does patient have a Living Will: No Does patient have a Durable POA for Healthcare: No Physician Review Additional Text: Acute hypoxemic respiratory failure secondary to COVID-19 pneumonia Insulin resistance Depression Chronic back pain, on chronic pain medication -patient noted to have oxygen saturations less than 90% in the ED, breathing more comfortably on 3 L nasal cannula -prior infection of covered 19 in September of 2020, reported mostly mild shortne ss of breath and diarrhea symptoms at that time, now patient and her family members have and shortness of breath and diarrhea, positive again for COVID -CTA done in the ED 2 days ago, negative for PE, notable for bilateral ground- glass opacities consistent with COVID pneumonia -will bring patient in for obs, start ivermectin, Solu-Medrol, Eliquis -daily oxygen saturations -wean o2 as needed -CRP elevated, tachypneic VTE: Eliquis Code: full Dispo: Anticipate Dc home in 24-48 hr, may need home oxygen Time Spent Managing Pts Care (In Minutes): 60
[2020-12-18] MEDS ORDERED: NS KCL 20MEQ 1,000 ML IV ONE (09:37)
--- NOTE | 2020-12-18 09:39 | RAD REPORT ---
EXAM DESCRIPTION: RAD - Chest Single View - 12/18/2020 7:43 am CLINICAL HISTORY: Cough;Dyspnea;Abdominal distention Chest pain. COMPARISON: Chest Single View dated 12/15/2020 FINDINGS: Portable technique limits examination quality. The lungs are underinflated with bilateral interstitial pulmonary opacities noted suggesting viral in fection. The heart is upper limit normal in size. No displaced fractures.
[2020-12-18] MEDS: INSULIN -REGULAR HUMAN 50 UNIT/0.5 ML ML SQ SCH ×3 (13:47→21:00)
[2020-12-18 14:50] VITALS: BMI 36.3
[2020-12-18] MEDS ORDERED: INFLUENZA VACCINE (for 3y+) 0.5 ML DOSE IMVAC ONE (16:00)
[2020-12-18] MEDS ORDERED: PNEUMOCOCCAL VACCINE 0.5 ML IMVAC ONE (16:00)
[2020-12-18] MEDS: METHYLPREDNISOLONE 125 MG INJ IV SCH ×2 (17:40→22:41)
[2020-12-18] MEDS ORDERED: METHYLPREDNISOLONE 125 MG INJ ONE (17:43)
[2020-12-18] MEDS: APIXABAN 5 MG TABLET PO SCH (22:41)
[2020-12-19 06:45] LABS: Absolute Lymphocytes (CBC) 0.7 K/uL (0.7-4.9); Basophils % 0.1 % (0-1.3); Hematocrit 37.5 % (36.0-45.0); Lymphocytes % 11.7 % (15.3-44.8); MPV 9.3 fL (7.6-11.3); RBC Red Blood Cell Count 4.24 M/uL (3.86-4.86)
[2020-12-19 07:17] LABS: BUN Blood Urea Nitrogen 13 mg/dL (7-18); Bicarbonate 29 mmol/L (21-32); Ferritin 163.1 ng/mL (8-388); Glucose Level 130 mg/dL (74-106); Magnesium 2.2 mg/dL (1.8-2.4); Potassium 3.3 mmol/L (3.5-5.1); Sodium Level 142 mmol/L (136-145)
[2020-12-19] MEDS: INSULIN -REGULAR HUMAN 50 UNIT/0.5 ML ML SQ SCH ×4 (07:30→21:00)
[2020-12-19] MEDS ORDERED: ONDANSETRON 4 MG/2 ML VIAL IV PRN (08:55)
[2020-12-19] MEDS: HOME MED 1 EA UNK (Bupropion Hcl [Wellbutrin Sr] 100 MG Tablet.Er) PO SCH (09:00)
[2020-12-19] MEDS: METHYLPREDNISOLONE 125 MG INJ IV SCH ×2 (09:15→21:00)
[2020-12-19] MEDS: APIXABAN 5 MG TABLET PO SCH ×2 (09:16→21:00)
[2020-12-19] MEDS: PANTOPRAZOLE 40MG TABLET PO SCH (09:19)
[2020-12-19] MEDS: ACETAMINOPHEN 500 MG TAB PO PRN ×2 (11:24→21:00)
[2020-12-19] MEDS ORDERED: POTASSIUM CL SA 10 MEQ TAB PO ONE (16:00)
--- NOTE | 2020-12-19 19:51 | P.PN ---
Subjective Date of Service: 12/19/20 Chief Complaint: hypoxia, COVID-19 pneumonia Subjective: No new changes (feeling about the same as yesterday, O2 requirment slightly increased, reports significant AGUILAR, diarrhea slowing down, +Cough, +headache) Review of Systems 10-point ROS is otherwise unremarkable Physical Examination - Vital Signs Temperature: 97.8 F Blood Pressure: 117/67 Pulse: 75 Respirations: 19 Pulse Ox (%): 91 Assessment & Plan Physician Review Additional Text: Physical Exam: Gen: appears ill, NAD HEENT: normal conjunctiva, no sinus tenderness CV:RRR, no murmur Pulm: nonlabored on 4L NC, +dry cough Abd: soft, soreness on palpation throughout Ext: no edema, no rash Acute hypoxemic respiratory failure secondary to COVID-19 pneumonia Insulin resistance Depression Chronic back pain, on chronic pain medication -O2 requirement increasing -prior infection of covered 19 in September of 2020, reported mostly mild shortness of breath and diarrhea symptoms at that time, now patient and her fami ly members have and shortness of breath and diarrhea, positive again for COVID -CTA done in the ED 2 days ago, negative for PE, notable for bilateral ground- glass opacities consistent with COVID pneumonia -contine Solu-Medrol, Eliquis, received levaquin x1 -daily oxygen saturations -wean o2 as needed -CRP elevated, tachypneic VTE: Eliquis Code: full Dispo: Anticipate Dc home in 24-48 hr, will need home oxygen Time Spent Managing Pts Care (In Minutes): 35
[2020-12-19] MEDS: GUAIFENESIN/CODEINE 5ML UCUP PO PRN (21:00)
[2020-12-20 04:10] LABS: Absolute Lymphocytes (CBC) 0.6 K/uL (0.7-4.9); Basophils % 0.1 % (0-1.3); Hematocrit 38.1 % (36.0-45.0); Lymphocytes % 6.7 % (15.3-44.8); MPV 9.3 fL (7.6-11.3); RBC Red Blood Cell Count 4.28 M/uL (3.86-4.86)
[2020-12-20 04:54] LABS: BUN Blood Urea Nitrogen 19 mg/dL (7-18); Bicarbonate 31 mmol/L (21-32); Ferritin 165.6 ng/mL (8-388); Glucose Level 146 mg/dL (74-106); Magnesium 2.6 mg/dL (1.8-2.4); Potassium 3.9 mmol/L (3.5-5.1); Sodium Level 142 mmol/L (136-145)
[2020-12-20] MEDS: PANTOPRAZOLE 40MG TABLET PO SCH (06:09)
[2020-12-20] MEDS: INSULIN -REGULAR HUMAN 50 UNIT/0.5 ML ML SQ SCH ×4 (07:30→21:00)
[2020-12-20] MEDS: METHYLPREDNISOLONE 125 MG INJ IV SCH ×2 (07:57→21:32)
[2020-12-20] MEDS: APIXABAN 5 MG TABLET PO SCH ×2 (07:58→21:33)
[2020-12-20] MEDS: HOME MED 1 EA UNK (Bupropion Hcl [Wellbutrin Sr] 100 MG Tablet.Er) PO SCH (09:00)
--- NOTE | 2020-12-20 09:56 | RAD REPORT ---
EXAM DESCRIPTION: RAD - Chest Single View - 12/20/2020 9:29 am CLINICAL HISTORY: low O2 sat, shortness of breath COMPARISON: November 17 TECHNIQUE: AP portable chest image was obtained 12/20/2020 9:29 am . FINDINGS: Lung volumes are very low and there is significant respiratory motion degradation. Interstitial and alveolar opacities are present. This is distributed throughout both lung vergara. Tra daniel is midline. Lung parenchymal pattern is nonspecific. There is questionable progression since Nov however, this is difficult to evaluate with the severity of motion. The heart size is within normal range for the exam limitations. Prior imaging indicated positive COVID test. Bilateral COVID p neumonia is the primary consideration in the current clinical environment. Non COVID viral pneumonia and organizing pneumonia can have this presentation but are considered less likely. Likewise, pulmona ry edema from cardiac or noncardiac etiology is possible but much less likely. No acute bony abnormality seen. No acute aortic findings suspected. IMPRESSION: Bilateral interstitial and alveolar opacification. Given the collective findings and current and prior provided history, bilateral COVID-19 pneumonia re pricilla the primary consideration. Exam is limited due to the motion. Slight worsening in the lung parenchymal opacification cannot be e xcluded.
[2020-12-20] MEDS: ACETAMINOPHEN 500 MG TAB PO PRN (12:07)
--- NOTE | 2020-12-20 12:13 | P.PN ---
Subjective Date of Service: 12/20/20 Chief Complaint: hypoxia, COVID-19 pneumonia Subjective: Worsening (Patient's oxygen requirement is increasing, she has continued was very shallow breathing. Diarrhea has improved, mild abdominal soreness. Continues with nonproductive cough) Review of Systems 10-point ROS is otherwise unremarkable Physical Examination - Vital Signs Temperature: 97.3 F Blood Pressure: 117/63 Pulse: 73 Respirations: 19 Pulse Ox (%): 80 - Studies Laboratory Data (last 24 hrs) 12/20/20 03:49: Sodium 142, Potassium 3.9, BUN 19 H, Creatinine 0.64, Glucose 146 H, Magnesium 2.6 H 12/20/20 03:49: WBC 9.6 D, Hgb 12.7, Hct 38.1, Plt Count 267 12/19/20 21:50: Potassium 4.1 Microbiology Data (last 24 hrs): 12/18/20 07:36 Clean Catch Urine [place] Count - Final No growth. 12/18/20 07:36 Clean Catch Urine - Final No growth. Assessment & Plan Physician Review Additional Text: Physical Exam: Gen: appears ill, NAD HEENT: normal conjunctiva, no sinus tenderness CV:RRR, no murmur Pulm: Labored on 5L NC, +dry cough Abd: soft, soreness on palpation throughout Ext: no edema, no rash Acute hypoxemic respiratory failure secondary to COVID-19 pneumonia Insulin resistance Depression Chronic back pain, on chronic pain medication -O2 requirement increasing -prior infection of COVID 19 in September of 2020, reported mostly mild SOB and diarrhea symptoms at that time, now patient and her family members have and shortness of breath and diarrhea, positive again for COVID -CTA done in the ED 2 days ago, negative for PE, notable for bilateral ground- glass opacities consistent with COVID pneumonia -contine Solu-Medrol, Eliquis, received ivermectin x1 on 12/19 -do not suspect suprainfection with bacteria at this time -continuous pulse ox -may need BIPAP -wean o2 as needed -trend ferritin/CRP -discussed with pulm, patient later in course of infection, and was 1st diagnosed with COVID months ago. Not candidate for remdesevir at this time VTE: Eliquis Code: full Dispo: worsening, hospitalization > 2 days Time Spent Managing Pts Care (In Minutes): 40
[2020-12-20 13:34] LABS: Thyroid Stimulating Hormone 0.279 uIU/mL (0.360-3.740)
[2020-12-20 13:37] LABS: Arterial Blood Carboxyhemoglob 0.7 % (0-1.5); Blood Gas Oxyhemoglobin 90.4 % (94-97); Blood O2 Saturation 92.2 % (92-98.5)
[2020-12-20] MEDS: ASCORBIC ACID 500 MG TABLET PO SCH ×3 (13:46→21:33)
[2020-12-20] MEDS ORDERED: IVERMECTIN 3 MG TABLET PO ONE (15:00)
[2020-12-20] MEDS ORDERED: POTASSIUM CL SA 10 MEQ TAB PO ONE (21:00)
[2020-12-20] MEDS: IBUPROFEN 200 MG TAB PO PRN (21:33)
[2020-12-20] MEDS: THIAMINE HCL 100 MG TABLET PO SCH (21:35)
[2020-12-21] MEDS: ACETAMINOPHEN 500 MG TAB PO PRN ×3 (03:32→21:17)
[2020-12-21 04:28] LABS: Hematocrit 36.2 % (36.0-45.0); MPV 9.3 fL (7.6-11.3); RBC Red Blood Cell Count 4.12 M/uL (3.86-4.86)
[2020-12-21 04:54] LABS: BUN Blood Urea Nitrogen 20 mg/dL (7-18); Bicarbonate 31 mmol/L (21-32); Ferritin 151.1 ng/mL (8-388); Glucose Level 137 mg/dL (74-106); Magnesium 2.3 mg/dL (1.8-2.4); Potassium 4.2 mmol/L (3.5-5.1); Sodium Level 141 mmol/L (136-145)
[2020-12-21] MEDS: PANTOPRAZOLE 40MG TABLET PO SCH (06:18)
[2020-12-21] MEDS: INSULIN -REGULAR HUMAN 50 UNIT/0.5 ML ML SQ SCH ×4 (07:30→21:00)
[2020-12-21] MEDS: HOME MED 1 EA UNK (Bupropion Hcl [Wellbutrin Sr] 100 MG Tablet.Er) PO SCH (09:00)
--- NOTE | 2020-12-21 09:00 | RAD REPORT ---
EXAM DESCRIPTION: RAD - Chest Single View - 12/21/2020 6:43 am CLINICAL HISTORY: worsening hypoxia, covid Chest pain. COMPARISON: Chest Single View dated 12/20/2020; Chest Single View dated 12/18/2020; Chest Single View dated 12/15/2020 FINDINGS: Portable technique limits examination quality. Moderate bilateral pulmonary opacities are noted, slightly progressive since the comparative radiogra ph from yesterday. The heart is mildly enlarged in size. No displaced fractures. IMPRESSION: Mild worsening in lung aeration is seen since yesterday's study.
[2020-12-21] MEDS: ASCORBIC ACID 500 MG TABLET PO SCH ×4 (10:24→21:17)
[2020-12-21] MEDS: THIAMINE HCL 100 MG TABLET PO SCH ×2 (10:25→21:17)
[2020-12-21] MEDS: VITAMIN D 5,000 UNIT CAP PO SCH (10:25)
[2020-12-21] MEDS: ZINC SULFATE 220 MG CAP PO SCH (10:25)
[2020-12-21] MEDS: APIXABAN 5 MG TABLET PO SCH ×2 (10:26→21:17)
[2020-12-21] MEDS: METHYLPREDNISOLONE 125 MG INJ IV SCH ×3 (10:28→21:18)
[2020-12-21] MEDS: IBUPROFEN 200 MG TAB PO PRN (10:34)
--- NOTE | 2020-12-21 15:04 | P.PN ---
Subjective Date of Service: 12/21/20 Chief Complaint: hypoxia, COVID-19 pneumonia Subjective: No new changes (still requiring HFNC, patient feels about the same, has headache from HFNC, no diarrhea) Review of Systems 10-point ROS is otherwise unremarkable Physical Examination - Vital Signs Temperature: 97.3 F Blood Pressure: 112/82 Pulse: 71 Respirations: 22 Pulse Ox (%): 89 Assessment & Plan Physician Review Additional Text: Physical Exam: Gen: appears ill, NAD HEENT: normal conjunctiva, no sinus tenderness CV: RRR, no murmur Pulm: Labored on HFNC Abd: soft, NTND Ext: no edema, no rash Acute hypoxemic respiratory failure secondary to COVID-19 pneumonia Insulin resistance Depression Chronic back pain, on chronic pain medication -on HFNC, CRP and ferritin not too elevated. CXR worsening. trend -prior infection of COVID 19 in September of 2020, reported mostly mild SOB and diarrhea symptoms at that time, now patient and her family members have and shortness of breath and diarrhea, positive again for COVID -CTA done in the ED 2 days prior to this admission, negative for PE, notable for bilateral ground-glass opacities consistent with COVID pneumonia -contine Solu-Medrol, Eliquis, received ivermectin x2 doses -do not suspect superinfection with bacteria at this time -continuous pulse ox -may need BIPAP -wean o2 as needed -discussed with pulm, patient later in course of infection (>1week), and was 1st diagnosed with COVID months ago. Not candidate for remdesevir at this time VTE: Eliquis Code: full Dispo: hospitalization > 2 days Time Spent Managing Pts Care (In Minutes): 35
--- NOTE | 2020-12-21 16:45 | P.CNS ---
Date of Consult: 12/21/20 Reason for Consult: Respiratory failure Chief Complaint: Respiratory failure due to butler virus History of Present Illness: Patient is 55 years of age and admitted from the emergency room for the 2nd time with shortness of breath on exertion gets very dyspneic infection was diagnosed back in September had mild symptoms including diarrhea all family tested positive for butler virus came into the emergency room she is still requiring a significant amount of oxygen although she is feeling better chest x-ray consistent the butler virus pneumonia Allergies No Known Allergies Allergy (Unverified 12/18/20 07:43) Home Medications: Bupropion HCl [Wellbutrin Sr] 100 mg PO DAILY 12/18/20 Cholecalciferol (Vitamin D3) [Vitamin D3] 2,000 unit PO DAILY 12/18/20 Amoxicillin/Potassium Clav [Amox-Clav 875-125 mg Tablet] 1 tab PO Q12H 12/19/20 Azithromycin 2 tab PO DAILY 12/19/20 Benzonatate 1 cap PO TID 12/19/20 Ergocalciferol (Vitamin D2) [Vitamin D 50,000 Unit Cap] 1 tab PO SEECOM 12/19/20 Tramadol HCl [Ultram] 1 tab PO Q6H PRN 12/19/20 predniSONE [Prednisone] 1 tab PO Q12H 12/19/20 - Past Medical/Surgical History Diabetic: No -: Insulin resistance -: Depression -: Chronic back pain -: Hysterectomy -: -: Foot surgery -: "Back surgery" -: tummy tuck -: breast augmentation - Family History Mother History Unknown: Yes Medical History: Diabetes, Other (see notes) Notes: Thyroid Father History Unknown: Yes Medical History: Diabetes Notes: Thyroid - Social History Alcohol use: No CD- Drugs: No Place of Residence: Home Review of Systems General: Weakness Respiratory: Cough, Shortness of Breath Physical Examination Temp Pulse Resp BP Pulse Ox 97.2 F 73 21 H 125/61 90 L 12/21/20 16:00 12/21/20 16:00 12/21/20 16:00 12/21/20 16:00 12/21/20 16:00 General: Alert, In no apparent distress, Mild distress Respiratory: Clear to auscultation bilaterally Cardiovascular: No edema, Regular rate/rhythm - Problems (1) Pneumonia due to 2019 novel coronavirus Current Visit: Yes Status: Acute Plan: Patient is 55 years of age admitted with hypoxemia pneumonia due to butler virus ferritin levels normal CRP is been declining chest x-ray shows minimal marleny ateral changes currently on 60% FiO2 continue with present medication patient has received ivermectin continue titrate O2 down to sat of 90% possible discharge in 1 or 2 days continue with steroids
[2020-12-22] MEDS: ACETAMINOPHEN 500 MG TAB PO PRN ×3 (03:35→21:16)
[2020-12-22 04:05] LABS: Hematocrit 37.6 % (36.0-45.0); MPV 9.3 fL (7.6-11.3); RBC Red Blood Cell Count 4.26 M/uL (3.86-4.86)
[2020-12-22 04:29] LABS: BUN Blood Urea Nitrogen 19 mg/dL (7-18); Bicarbonate 31 mmol/L (21-32); Ferritin 161.4 ng/mL (8-388); Glucose Level 141 mg/dL (74-106); Magnesium 2.4 mg/dL (1.8-2.4); Potassium 4.2 mmol/L (3.5-5.1); Sodium Level 139 mmol/L (136-145)
[2020-12-22] MEDS: PANTOPRAZOLE 40MG TABLET PO SCH (05:44)
[2020-12-22] MEDS: INSULIN -REGULAR HUMAN 50 UNIT/0.5 ML ML SQ SCH ×4 (07:30→21:00)
--- NOTE | 2020-12-22 08:26 | ECHO ---
HEIGHT: 5 ft 0 in WEIGHT: 186 lb 0 oz DATE OF STUDY: 12/21/[address]: Narayan Ferro MD 2-DIMENSIONAL: YES M.MODE: YES DOPPLER: YES COLOR FLOW: YES TDS: YES PORTABLE: DEFINITY: BUBBLE STUDY: DIAGNOSIS: EVALUATE PULMONARY HYPERTENSION CARDIAC HISTORY: CATHERIZATION: NO SURGERY: NO PROSTHETIC VALVE: NO PACEMAKER: NO MEASUREMENTS (cm) DIASTOLIC (NORMALS) SYSTOLIC (NORMALS) IVSd 1.1 (0.6-1.2) LA Diam 2.8 (1.9-4.0) LVEF 57% LVIDd 3.7 (3.5-5.7) LVIDs 2.6 (2.0-3.5) %FS 29% LVPWd 1.2 (0.6-1.2) Ao Diam 2.5 (2.0-3.7) 2 DIMENSIONAL ASSESSMENT: POOR WINDOWS RIGHT ATRIUM: LEFT ATRIUM: RIGHT VENTRICLE: LEFT VENTRICLE: TRICUSPID VALVE: MITRAL VALVE: PULMONIC VALVE: AORTIC VALVE: PERICARDIAL EFFUSION: AORTIC ROOT: LEFT VENTRICULAR WALL MOTION: DOPPLER/COLOR FLOW: COMMENTS: NORMAL LEFT VENTRICULAR EJECTION FRACTION 55-60% WITH NORMAL WALL MOTION. SMALL PERICARDIAL EFFUSION. POOR WINDOWS. TECHNOLOGIST: RATNA PAULSON
[2020-12-22] MEDS: HOME MED 1 EA UNK (Bupropion Hcl [Wellbutrin Sr] 100 MG Tablet.Er) PO SCH (09:00)
[2020-12-22] MEDS: METHYLPREDNISOLONE 125 MG INJ IV SCH ×3 (10:01→21:16)
[2020-12-22] MEDS: ASCORBIC ACID 500 MG TABLET PO SCH ×4 (10:02→21:16)
[2020-12-22] MEDS: ZINC SULFATE 220 MG CAP PO SCH (10:03)
[2020-12-22] MEDS: THIAMINE HCL 100 MG TABLET PO SCH ×2 (10:03→21:16)
[2020-12-22] MEDS: GUAIFENESIN/CODEINE 5ML UCUP PO PRN (10:03)
[2020-12-22] MEDS: VITAMIN D 5,000 UNIT CAP PO SCH (10:03)
[2020-12-22] MEDS: APIXABAN 5 MG TABLET PO SCH ×2 (10:03→21:16)
[2020-12-22] MEDS ORDERED: FUROSEMIDE 20 MG/ 2ML VIAL IV ONE (12:34)
--- NOTE | 2020-12-22 12:34 | P.PN ---
Subjective Date of Service: 12/22/20 Chief Complaint: Respiratory failure due to butler virus No change patient is still very hypoxic on minimal exertion dyspneic Review of Systems General: Weakness Respiratory: Cough, Shortness of Breath Physical Examination - Vital Signs Temperature: 97.1 F Blood Pressure: 126/77 Pulse: 82 Respirations: 54 Pulse Ox (%): 81 Assessment & Plan - Problems (Diagnosis) (1) Pneumonia due to 2019 novel coronavirus Current Visit: Yes Status: Acute Plan: Patient admitted with respiratory failure still very hypoxic of increase the dose of Solu-Medrol chest x-ray shows significant bilateral interstitial changes interestingly ferritin level is normal so is a CRP 1 dose of Lasix
[2020-12-22] MEDS ORDERED: DIPHENHYDRAMINE 50 MG/ML VIAL IV SCH (16:42)
[2020-12-22] MEDS ORDERED: DIPHENHYDRAMINE 25 MG TAB/CAP PO SCH (16:42)
[2020-12-22] MEDS ORDERED: NA CHLORIDE 0.9% 250 ML IV ONE (16:42)
--- NOTE | 2020-12-22 16:49 | P.PN ---
Subjective Date of Service: 12/22/20 Chief Complaint: Respiratory failure due to butler virus Patient reports persistent shortness of breath. She has been sitting by the side of the bed and has not been able to lay on the bed due to shortness of breath. She is tolerating high-flow oxygen. Physical Examination - Vital Signs Temperature: 97.1 F Blood Pressure: 126/77 Pulse: 82 Respirations: 54 Pulse Ox (%): 81 - Physical Exam General: Alert, Moderate distress Neck: Supple Respiratory: Crackles/rales Cardiovascular: No edema, Regular rate/rhythm Gastrointestinal: Soft and benign, Non-distended Musculoskeletal: No swelling Integumentary: No rashes Neurological: Normal speech, Normal strength at 5/5 x4 extr Assessment And Plan Physician Review Additional Text: Acute hypoxemic respiratory failure secondary to COVID-19 pneumonia Insulin resistance Depression Chronic back pain, on chronic pain medication -on HFNC, CRP and ferritin not too elevated. CXR worsening. -CTA done in the ED 2 days prior to this admission, negative for PE, notable for bilateral ground-glass opacities consistent with COVID pneumonia -reinfection is possible. -contine Solu-Medrol, Eliquis, received ivermectin x2 doses -case discussed with Dr. Lewis. -will give convalescent plasma today. -continue high-flow oxygen, BiPAP as needed. -wean o2 as needed VTE: Eliquis Code: full
[2020-12-22] MEDS ORDERED: NA CHLORIDE 0.9% 100 ML ONE (22:39)
[2020-12-23] MEDS: GUAIFENESIN/CODEINE 5ML UCUP PO PRN (00:31)
[2020-12-23 03:56] LABS: Absolute Lymphocytes (CBC) 0.8 K/uL (0.7-4.9); Basophils % 0.1 % (0-1.3); Hematocrit 38.3 % (36.0-45.0); Lymphocytes % 8.2 % (15.3-44.8); MPV 9.4 fL (7.6-11.3); RBC Red Blood Cell Count 4.32 M/uL (3.86-4.86)
[2020-12-23 04:31] LABS: Albumin 2.4 g/dL (3.4-5.0); Bilirubin Total 1.1 mg/dL (0.2-1.0); Ferritin 143.8 ng/mL (8-388); Potassium 4.2 mmol/L (3.5-5.1); Protein, Total 6.7 g/dL (6.4-8.2)
[2020-12-23] MEDS: INSULIN -REGULAR HUMAN 50 UNIT/0.5 ML ML SQ SCH ×4 (07:30→20:44)
[2020-12-23 07:56] LABS: Platelet Estimate ADEQ; White Blood Cell Scan OK (OK)
[2020-12-23 07:57] LABS: Blood Morphology Comment NOT SEEN (NOT SEEN)
[2020-12-23] MEDS: VITAMIN D 5,000 UNIT CAP PO SCH (08:07)
[2020-12-23] MEDS: ASCORBIC ACID 500 MG TABLET PO SCH ×4 (08:07→20:42)
[2020-12-23] MEDS: ZINC SULFATE 220 MG CAP PO SCH (08:07)
[2020-12-23] MEDS: APIXABAN 5 MG TABLET PO SCH ×2 (08:07→20:42)
[2020-12-23] MEDS: METHYLPREDNISOLONE 125 MG INJ IV SCH ×3 (08:07→20:42)
[2020-12-23] MEDS: HOME MED 1 EA UNK (Bupropion Hcl [Wellbutrin Sr] 100 MG Tablet.Er) PO SCH (08:08)
[2020-12-23] MEDS: THIAMINE HCL 100 MG TABLET PO SCH ×2 (10:34→20:45)
--- NOTE | 2020-12-23 12:39 | P.PN ---
Subjective Date of Service: 12/23/20 Chief Complaint: Respiratory failure due to butler virus Patient is improving oxygen requirements are declining she is subjectively feeling better Review of Systems General: Weakness Respiratory: Cough, Shortness of Breath Physical Examination - Vital Signs Temperature: 97.6 F Blood Pressure: 98/53 Pulse: 59 Respirations: 19 Pulse Ox (%): 98 - Studies Microbiology Data (last 24 hrs): 12/18/20 07:20 Blood - Blood Aerobic Blood Culture - Final No growth in 5 days. 12/18/20 07:20 Blood - Blood Anaerobic Blood Culture - Final No growth in 5 days. 12/18/20 06:55 Blood - Blood Aerobic Blood Culture - Final No growth in 5 days. 12/18/20 06:55 Blood - Blood Anaerobic Blood Culture - Final No growth in 5 days. Assessment & Plan - Problems (Diagnosis) (1) Pneumonia due to 2019 novel coronavirus Current Visit: Yes Status: Acute Plan: Patient is doing much better oxygen requirements are declining CRP is also decline reduce dose of Solu-Medrol labs reviewed
[2020-12-23] MEDS ORDERED: clonazePAM 0.5 MG TAB PO PRN (12:40)
--- NOTE | 2020-12-23 15:38 | P.PN ---
Subjective Date of Service: 12/23/20 Chief Complaint: Respiratory failure due to butler virus Patient is doing better today. Her oxygen requirement has decreased. She states she is feeling better. Physical Examination - Vital Signs Temperature: 97.6 F Blood Pressure: 98/53 Pulse: 59 Respirations: 19 Pulse Ox (%): 98 - Physical Exam General: Alert, Mild distress HEENT: Other (High-flow oxygen.) Neck: JVD not distended Cardiovascular: No edema, Regular rate/rhythm, Normal S1 S2 Gastrointestinal: Soft and benign, Non-distended Musculoskeletal: No swelling Integumentary: No rashes Neurological: Normal strength at 5/5 x4 extr - Studies Microbiology Data (last 24 hrs): 12/18/20 07:20 Blood - Blood Aerobic Blood Culture - Final No growth in 5 days. 12/18/20 07:20 Blood - Blood Anaerobic Blood Culture - Final No growth in 5 days. 12/18/20 06:55 Blood - Blood Aerobic Blood Culture - Final No growth in 5 days. 12/18/20 06:55 Blood - Blood Anaerobic Blood Culture - Final No growth in 5 days. Assessment And Plan Physician Review Additional Text: Acute hypoxemic respiratory failure secondary to COVID-19 pneumonia Insulin resistance Depression Chronic back pain, on chronic pain medication -on HFNC, CRP and ferritin not too elevated. Her oxygen requirement is decreasing -CTA done in the ED 2 days prior to this admission, negative for PE, notable for bilateral ground-glass opacities consistent with COVID pneumonia -reinfection is possible. -status post convalescent plasma. -contine Solu-Medrol, Eliquis, received ivermectin x2 doses. -pulmonary Dr. Lewis is following. -continue high-flow oxygen, BiPAP as needed. -wean o2 as needed VTE: Eliquis Code: full
[2020-12-23] MEDS: ACETAMINOPHEN 500 MG TAB PO PRN (21:19)
[2020-12-24 04:08] LABS: Absolute Lymphocytes (CBC) 0.7 K/uL (0.7-4.9); Basophils % 0.1 % (0-1.3); Hematocrit 36.7 % (36.0-45.0); Lymphocytes % 6.7 % (15.3-44.8); MPV 9.2 fL (7.6-11.3); RBC Red Blood Cell Count 4.18 M/uL (3.86-4.86)
[2020-12-24 04:24] LABS: ALT/SGPT 24 U/L (12-78); AST/SGOT 20 U/L (15-37); Albumin 2.5 g/dL (3.4-5.0); Alkaline Phosphatase 81 U/L (45-117); BUN Blood Urea Nitrogen 27 mg/dL (7-18); Bicarbonate 30 mmol/L (21-32); Ferritin 128.5 ng/mL (8-388); Glucose Level 142 mg/dL (74-106); Potassium 4.3 mmol/L (3.5-5.1); Protein, Total 6.3 g/dL (6.4-8.2); Sodium Level 139 mmol/L (136-145)
[2020-12-24] MEDS: INSULIN -REGULAR HUMAN 50 UNIT/0.5 ML ML SQ SCH ×4 (07:30→21:00)
[2020-12-24] MEDS: HOME MED 1 EA UNK (Bupropion Hcl [Wellbutrin Sr] 100 MG Tablet.Er) PO SCH (09:00)
[2020-12-24] MEDS: APIXABAN 5 MG TABLET PO SCH ×2 (09:00→09:04)
[2020-12-24] MEDS: VITAMIN D 5,000 UNIT CAP PO SCH (09:04)
[2020-12-24] MEDS: THIAMINE HCL 100 MG TABLET PO SCH ×2 (09:04→20:46)
[2020-12-24] MEDS: METHYLPREDNISOLONE 125 MG INJ IV SCH ×3 (09:04→20:44)
[2020-12-24] MEDS: ZINC SULFATE 220 MG CAP PO SCH (09:04)
[2020-12-24] MEDS: ASCORBIC ACID 500 MG TABLET PO SCH ×4 (09:04→20:46)
--- NOTE | 2020-12-24 13:17 | P.PN ---
Subjective Date of Service: 12/24/20 Chief Complaint: Respiratory failure due to butler virus Patient is feeling better oxygen requirements have been declining no other change stills feels very weak and short of breath Review of Systems General: Weakness Respiratory: Shortness of Breath Physical Examination - Vital Signs Temperature: 97.9 F Blood Pressure: 93/53 Pulse: 65 Respirations: 40 Pulse Ox (%): 95 - Studies Microbiology Data (last 24 hrs): 12/18/20 07:20 Blood - Blood Aerobic Blood Culture - Final No growth in 5 days. 12/18/20 07:20 Blood - Blood Anaerobic Blood Culture - Final No growth in 5 days. Assessment & Plan - Problems (Diagnosis) (1) Pneumonia due to 2019 novel coronavirus Current Visit: Yes Status: Acute Plan: Patient has respiratory failure from butler virus is clinically improving oxygen requirements have declined to 70% continue with weaning done oxygen present doses of steroids possible discharge in 1 or 2 days increase dose of steroids for now change to p.o. Marques
--- NOTE | 2020-12-24 17:30 | P.PN ---
Subjective Date of Service: 12/24/20 Chief Complaint: Respiratory failure due to butler virus No major changes from yesterday. Patient report blood streaked stool this morning. She still dependent on high-flow oxygen by nasal cannula. Physical Examination - Vital Signs Temperature: 97.6 F Blood Pressure: 112/69 Pulse: 79 Respirations: 40 Pulse Ox (%): 87 - Physical Exam General: Alert, In no apparent distress HEENT: Other (HFNC) Respiratory: Crackles/rales Cardiovascular: No edema, Regular rate/rhythm, Normal S1 S2 Gastrointestinal: Soft and benign, Non-distended Musculoskeletal: No swelling Integumentary: No rashes Neurological: Other (No focal deficit.) Assessment And Plan Physician Review Additional Text: Acute hypoxemic respiratory failure secondary to COVID-19 pneumonia Insulin resistance Depression Chronic back pain, on chronic pain medication -on HFNC. -CTA done in the ED 2 days prior to this admission, negative for PE, notable for bilateral ground-glass opacities consistent with COVID pneumonia -reinfection is possible. -status post convalescent plasma. -continue Solu-Medrol. Patient received ivermectin x2 doses. -she prefers Lovenox to the Eliquis. She stated Eliquis made his see blood in her stool. Patient informed Lovenox may be also cause her to bleed. She voiced understand and agreed to a trial of Lovenox. -pulmonary Dr. Lewis is following. -continue high-flow oxygen, BiPAP as needed. -wean o2 as needed -monitor CBC. VTE: Eliquis Code: full
[2020-12-24] MEDS: ENOXAPARIN 80 MG/0.8 ML SQ SCH (20:45)
[2020-12-24] MEDS: ACETAMINOPHEN 500 MG TAB PO PRN (20:45)
[2020-12-24] MEDS ORDERED: APIXABAN 5 MG TABLET PO SCH (21:00)
[2020-12-24] MEDS ORDERED: ENOXAPARIN 80 MG/0.8 ML SQ SCH (21:00)
[2020-12-25] MEDS: ACETAMINOPHEN 500 MG TAB PO PRN ×2 (06:21→20:58)
[2020-12-25] MEDS: INSULIN -REGULAR HUMAN 50 UNIT/0.5 ML ML SQ SCH ×4 (07:30→21:00)
[2020-12-25] MEDS: VITAMIN D 5,000 UNIT CAP PO SCH (08:56)
[2020-12-25] MEDS: METHYLPREDNISOLONE 125 MG INJ IV SCH ×4 (08:57→21:01)
[2020-12-25] MEDS: ENOXAPARIN 80 MG/0.8 ML SQ SCH ×2 (08:57→20:59)
[2020-12-25] MEDS: ASCORBIC ACID 500 MG TABLET PO SCH ×4 (08:57→21:00)
[2020-12-25] MEDS: THIAMINE HCL 100 MG TABLET PO SCH ×2 (08:57→20:58)
[2020-12-25] MEDS: ZINC SULFATE 220 MG CAP PO SCH (08:57)
[2020-12-25] MEDS: HOME MED 1 EA UNK (Bupropion Hcl [Wellbutrin Sr] 100 MG Tablet.Er) PO SCH (08:58)
--- NOTE | 2020-12-25 13:31 | P.PN ---
Subjective Date of Service: 12/25/20 Chief Complaint: Respiratory failure due to butler virus Patient is improving her FiO2 is not decline to 50% sat on 88-90% Review of Systems General: Weakness Respiratory: Shortness of Breath Physical Examination - Vital Signs Temperature: 97.1 F Blood Pressure: 109/54 Pulse: 76 Respirations: 26 Pulse Ox (%): 87 Assessment & Plan - Problems (Diagnosis) (1) Pneumonia due to 2019 novel coronavirus Current Visit: Yes Status: Acute Plan: Respiratory failure from butler virus patient is improving oxygen requirements declining was set up with home O2 will try and 4 L to the nasal cannula oxygen tomorrow possible discharge patient refused to take Eliquis at home continue with Lovenox
--- NOTE | 2020-12-25 17:24 | P.PN ---
Subjective Date of Service: 12/25/20 Chief Complaint: Respiratory failure due to butler virus Patient states she feels much better. She is improving gradually. She is now on tolerating 20 liters/minute flow and FiO2 of 50% Physical Examination - Vital Signs Temperature: 97.1 F Blood Pressure: 109/54 Pulse: 76 Respirations: 26 Pulse Ox (%): 87 - Physical Exam General: Alert, In no apparent distress Neck: JVD not distended Respiratory: Crackles/rales Gastrointestinal: Soft and benign, Non-distended Musculoskeletal: No swelling Integumentary: No rashes Neurological: Other (No focal motor deficit) Assessment And Plan Physician Review Additional Text: Acute hypoxemic respiratory failure secondary to COVID-19 pneumonia Insulin resistance Depression Chronic back pain, on chronic pain medication -on HFNC. -CTA done in the ED 2 days prior to this admission, negative for PE, notable for bilateral ground-glass opacities consistent with COVID pneumonia -reinfection is possible. -status post convalescent plasma. -continue Solu-Medrol. Patient received ivermectin x2 doses. -she prefers Lovenox to the Eliquis. She stated Eliquis made her see blood in her stool. Patient informed Lovenox may be also cause her to bleed. She voiced understand and agreed to a trial of Lovenox. She is tolerating the Lovenox so far without any acute bleed. -pulmonary Dr. Lewis is following. -continue to wean oxygen. -monitor CBC. VTE: Eliquis Code: full
[2020-12-26 06:24] LABS: Basophils % 0.1 % (0-1.3); Hematocrit 39.9 % (36.0-45.0); Lymphocytes % 8.6 % (15.3-44.8); MPV 9.4 fL (7.6-11.3); RBC Red Blood Cell Count 4.47 M/uL (3.86-4.86)
[2020-12-26 06:33] LABS: Potassium 4.4 mmol/L (3.5-5.1)
[2020-12-26] MEDS: INSULIN -REGULAR HUMAN 50 UNIT/0.5 ML ML SQ SCH ×4 (07:30→20:11)
[2020-12-26] MEDS: THIAMINE HCL 100 MG TABLET PO SCH ×3 (09:00→20:11)
[2020-12-26] MEDS: HOME MED 1 EA UNK (Bupropion Hcl [Wellbutrin Sr] 100 MG Tablet.Er) PO SCH (09:00)
[2020-12-26] MEDS: ENOXAPARIN 80 MG/0.8 ML SQ SCH ×2 (09:06→20:10)
[2020-12-26] MEDS: ASCORBIC ACID 500 MG TABLET PO SCH ×4 (09:07→20:11)
[2020-12-26] MEDS: METHYLPREDNISOLONE 125 MG INJ IV SCH ×3 (09:07→20:10)
[2020-12-26] MEDS: VITAMIN D 5,000 UNIT CAP PO SCH (09:07)
[2020-12-26] MEDS: ZINC SULFATE 220 MG CAP PO SCH (09:07)
--- NOTE | 2020-12-26 12:34 | P.PN ---
Subjective Date of Service: 12/26/20 Chief Complaint: Respiratory failure due to butler virus Patient reports doing much better. She has been weaned off high-flow oxygen and now tolerating 6 L of oxygen by nasal cannula. Physical Examination - Vital Signs Temperature: 97.6 F Blood Pressure: 92/55 Pulse: 81 Respirations: 24 Pulse Ox (%): 98 - Physical Exam General: Alert, In no apparent distress HEENT: Other (Oxygen by nasal canula) Respiratory: Crackles/rales Cardiovascular: No edema, Regular rate/rhythm, Normal S1 S2 Gastrointestinal: Soft and benign, Non-distended Musculoskeletal: No swelling Integumentary: No rashes Assessment And Plan Physician Review Additional Text: Acute hypoxemic respiratory failure secondary to COVID-19 pneumonia Insulin resistance Depression Chronic back pain, on chronic pain medication -now tolerating oxygen by nasal cannula. -CTA done in the ED 2 days prior to this admission, negative for PE, notable for bilateral ground-glass opacities consistent with COVID pneumonia -reinfection is possible. -status post convalescent plasma. -continue Solu-Medrol. Patient received ivermectin x2 doses. -she prefers Lovenox to the Eliquis. She stated Eliquis made her see blood in her stool. She is tolerating the Lovenox so far without any acute bleed. -pulmonary Dr. Lewis is following. -continue to wean oxygen. Plan to Dc home once she is able to tolerate about 4 L of oxygen. -monitor CBC. VTE: Lovenox. Code: full
[2020-12-27] MEDS: INSULIN -REGULAR HUMAN 50 UNIT/0.5 ML ML SQ SCH ×4 (07:30→20:51)
[2020-12-27] MEDS: THIAMINE HCL 100 MG TABLET PO SCH ×2 (08:38→20:50)
[2020-12-27] MEDS: METHYLPREDNISOLONE 125 MG INJ IV SCH ×3 (08:38→20:50)
[2020-12-27] MEDS: ZINC SULFATE 220 MG CAP PO SCH (08:38)
[2020-12-27] MEDS: ENOXAPARIN 80 MG/0.8 ML SQ SCH (08:38)
[2020-12-27] MEDS: ASCORBIC ACID 500 MG TABLET PO SCH ×6 (08:38→20:52)
[2020-12-27] MEDS: VITAMIN D 5,000 UNIT CAP PO SCH (08:38)
[2020-12-27] MEDS: HOME MED 1 EA UNK (Bupropion Hcl [Wellbutrin Sr] 100 MG Tablet.Er) PO SCH (08:48)
--- NOTE | 2020-12-27 10:38 | P.PN ---
Subjective Date of Service: 12/27/20 Chief Complaint: Respiratory failure due to butler virus Patient is doing much better she does experience significant desat on minimal exertion no the change Review of Systems General: Weakness Respiratory: Shortness of Breath Physical Examination - Vital Signs Temperature: 97.8 F Blood Pressure: 108/56 Pulse: 59 Respirations: 18 Pulse Ox (%): 95 - Physical Exam General: Alert, In no apparent distress, Oriented x3 Neck: No Thyromegaly Respiratory: Diminished Assessment & Plan - Problems (Diagnosis) (1) Pneumonia due to 2019 novel coronavirus Current Visit: Yes Status: Acute Plan: Patient admitted with respiratory failure from butler virus she is improving although she is experiencing significant desat on minor exertion discuss with the patient patient agreeable to change to p.o. Eliquis continue to wean her oxygen down to sat of 88-90% also try 4-6 L nasal cannula oxygen continue with the high-dose steroids
--- NOTE | 2020-12-27 11:33 | P.PN ---
Subjective Date of Service: 12/27/20 Chief Complaint: Respiratory failure due to butler virus Patient is doing better. She has been tolerating 5-6 L of oxygen by nasal cannula. Physical Examination - Vital Signs Temperature: 97.8 F Blood Pressure: 108/56 Pulse: 59 Respirations: 18 Pulse Ox (%): 95 - Physical Exam General: Alert, In no apparent distress Cardiovascular: No edema, Regular rate/rhythm Gastrointestinal: Soft and benign, Non-distended Musculoskeletal: No swelling Integumentary: No rashes Neurological: Other (No focal deficit) Assessment And Plan Physician Review Additional Text: Acute hypoxemic respiratory failure secondary to COVID-19 pneumonia Insulin resistance Depression Chronic back pain, on chronic pain medication -now tolerating oxygen by nasal cannula. -CTA done in the ED 2 days prior to this admission, negative for PE, notable for bilateral ground-glass opacities consistent with COVID pneumonia -reinfection is possible. -status post convalescent plasma. -continue Solu-Medrol. Patient received ivermectin x2 doses. -she prefers Lovenox to the Eliquis. She stated Eliquis made her see blood in her stool. She is tolerating the Lovenox so far without any acute bleed. -may need to resume Eliquis on discharge -pulmonary Dr. Lewis is following. -continue to wean oxygen. Plan to Dc home once she is able to tolerate about 4 L of oxygen. VTE: Lovenox. Code: full
[2020-12-27] MEDS: APIXABAN 2.5 MG TABLET PO SCH (20:50)
[2020-12-28] MEDS: INSULIN -REGULAR HUMAN 50 UNIT/0.5 ML ML SQ SCH ×4 (07:30→21:31)
[2020-12-28] MEDS: ASCORBIC ACID 500 MG TABLET PO SCH ×5 (08:06→21:31)
[2020-12-28] MEDS: VITAMIN D 5,000 UNIT CAP PO SCH (08:06)
[2020-12-28] MEDS: ZINC SULFATE 220 MG CAP PO SCH (08:06)
[2020-12-28] MEDS: METHYLPREDNISOLONE 125 MG INJ IV SCH ×3 (08:08→21:30)
[2020-12-28] MEDS: APIXABAN 2.5 MG TABLET PO SCH (08:08)
[2020-12-28] MEDS: THIAMINE HCL 100 MG TABLET PO SCH ×2 (08:10→21:30)
[2020-12-28] MEDS: HOME MED 1 EA UNK (Bupropion Hcl [Wellbutrin Sr] 100 MG Tablet.Er) PO SCH (08:23)
[2020-12-28] MEDS: APIXABAN 5 MG TABLET PO SCH ×2 (08:23→21:30)
--- NOTE | 2020-12-28 11:34 | P.DS ---
Admission Date: 12/20/20 Discharge Date: 12/28/20 Disposition: ROUTINE DISCHARGE Discharge Condition: FAIR Reason for Admission: Respiratory failure due to butler virus Vital Signs/Physical Exam: Temp Pulse Resp BP Pulse Ox 97.1 F 72 28 H 109/66 94 12/28/20 08:00 12/28/20 08:00 12/28/20 08:00 12/28/20 08:00 12/28/20 08:00 Laboratory Data at Discharge: WBC 12.10 K/uL (4.3-10.9) H 12/26/20 05:55 Hgb 12.9 g/dL (12.0-15.0) 12/26/20 05:55 Hct 39.9 % (36.0-45.0) 12/26/20 05:55 Plt Count 434 K/uL (152-406) H 12/26/20 05:55 PT 11.7 SECONDS (9.5-12.5) 12/18/20 06:55 INR 0.99 12/18/20 06:55 Sodium 141 mmol/L (136-145) 12/26/20 05:55 Potassium 4.4 mmol/L (3.5-5.1) 12/26/20 05:55 BUN 29 mg/dL (7-18) H 12/26/20 05:55 Creatinine 0.71 mg/dL (0.55-1.3) 12/26/20 05:55 Glucose 115 mg/dL (74-106) H 12/26/20 05:55 Magnesium 2.4 mg/dL (1.8-2.4) 12/22/20 03:28 Total Bilirubin 1.0 mg/dL (0.2-1.0) 12/24/20 03:29 AST 20 U/L (15-37) 12/24/20 03:29 ALT 24 U/L (12-78) 12/24/20 03:29 Alkaline Phosphatase 81 U/L (45-117) 12/24/20 03:29 Lipase 41 U/L (73-393) L 12/18/20 06:55 Home Medications: Bupropion HCl [Wellbutrin Sr] 100 mg PO DAILY 12/18/20 Benzonatate 1 cap PO TID 12/19/20 Ergocalciferol (Vitamin D2) [Vitamin D 50,000 Unit Cap] 1 tab PO SEECOM 12/19/20 Tramadol HCl [Ultram] 1 tab PO Q6H PRN 12/19/20 Apixaban [Eliquis] 5 mg PO BID #60 tablet 12/28/20 Ascorbic Acid [Vitamin C*] 500 mg PO QID #120 tablet 12/28/20 Cholecalciferol (Vitamin D3) [Vitamin D 5,000 IU Cap*] 5,000 unit PO DAILY #30 cap 12/28/20 Guaifen W/Codeine Syrup [ROBITUSSIN A-C Syrup*] 5 ml PO QID PRN #30 ucup 0 12/28/20 Thiamine HCl [Vitamin B-1*] 200 mg PO BID #30 tablet 12/28/20 Zinc Sulfate [Zinc Sulfate*] 220 mg PO DAILY #30 cap 12/28/20 predniSONE [Prednisone] 1 tab PO Q12H #21 12/28/20 New Medications: Apixaban [Eliquis] 5 mg PO BID #60 tablet predniSONE [Prednisone] 1 tab PO Q12H #21 Guaifen W/Codeine Syrup [ROBITUSSIN A-C Syrup*] 5 ml PO QID PRN #30 ucup PRN Reason: Cough Thiamine HCl [Vitamin B-1*] 200 mg PO BID #30 tablet Ascorbic Acid [Vitamin C*] 500 mg PO QID #120 tablet Cholecalciferol (Vitamin D3) [Vitamin D 5,000 IU Cap*] 5,000 unit PO DAILY #30 cap Zinc Sulfate [Zinc Sulfate*] 220 mg PO DAILY #30 cap Followup: NONE,NONE [Primary Care Provider] -
--- NOTE | 2020-12-28 12:54 | P.PN ---
Subjective Date of Service: 12/28/20 Chief Complaint: Respiratory failure due to butler virus Patient is doing well tolerating nasal cannula oxygen feeling better no new complaints Review of Systems General: Weakness Respiratory: Shortness of Breath Physical Examination - Vital Signs Temperature: 97.1 F Blood Pressure: 109/66 Pulse: 72 Respirations: 28 Pulse Ox (%): 94 Assessment & Plan - Problems (Diagnosis) (1) Pneumonia due to 2019 novel coronavirus Current Visit: Yes Status: Acute Plan: Respiratory failure patient is clinically improving still experiencing desaturation minimal exertion plan for discharge on 4 L of nasal cannula oxygen continue with prednisone 20 mg twice a day for a week then taper down to 10 mg twice a day I have instructed patient is to remain on Eliquis for at least a month discharge today
--- NOTE | 2020-12-28 16:24 | P.PN ---
Subjective Date of Service: 12/28/20 Chief Complaint: Respiratory failure due to butler virus Patient is is saturating at 85-88% on 4 L of oxygen by nasal canula. She desaturate to 83% with exertion on the 4 L. Patient desires to go home. Physical Examination - Vital Signs Temperature: 97.1 F Blood Pressure: 109/66 Pulse: 72 Respirations: 28 Pulse Ox (%): 94 - Physical Exam General: Alert, In no apparent distress Neck: JVD not distended Cardiovascular: No edema, Regular rate/rhythm Gastrointestinal: Soft and benign, Non-distended Musculoskeletal: No swelling Integumentary: No rashes Assessment And Plan Physician Review Additional Text: Acute hypoxemic respiratory failure secondary to COVID-19 pneumonia Insulin resistance Depression Chronic back pain, on chronic pain medication -now tolerating oxygen by nasal cannula at 4 L with borderline hypoxia. -CTA done in the ED 2 days prior to this admission, negative for PE, notable for bilateral ground-glass opacities consistent with COVID pneumonia -status post convalescent plasma. -continue Solu-Medrol. Patient received ivermectin x2 doses. -Lovenox changed to Eliquis. -continue to wean oxygen. Plan to Dc home once she is able to tolerate about 4 L of oxygen with SaO2 greater than 90%. VTE: Eliquis. Code: full
[2020-12-28] MEDS: ENSURE HIGH PROTEIN 237 ML CAN PO SCH (21:32)
[2020-12-28] MEDS: GUAIFENESIN/CODEINE 5ML UCUP PO PRN (21:53)
[2020-12-29 03:53] LABS: Absolute Lymphocytes (CBC) 0.6 K/uL (0.7-4.9); Basophils % 0.7 % (0-1.3); Hematocrit 38.9 % (36.0-45.0); MPV 9.9 fL (7.6-11.3); RBC Red Blood Cell Count 4.33 M/uL (3.86-4.86)
[2020-12-29 04:46] LABS: Blood Morphology Comment NOT SEEN (NOT SEEN); Platelet Estimate ADEQ
[2020-12-29] MEDS: INSULIN -REGULAR HUMAN 50 UNIT/0.5 ML ML SQ SCH ×2 (07:30→11:30)
[2020-12-29] MEDS: THIAMINE HCL 100 MG TABLET PO SCH (07:49)
[2020-12-29] MEDS: VITAMIN D 5,000 UNIT CAP PO SCH (07:49)
[2020-12-29] MEDS: ASCORBIC ACID 500 MG TABLET PO SCH ×3 (07:49→12:34)
[2020-12-29] MEDS: ZINC SULFATE 220 MG CAP PO SCH (07:49)
[2020-12-29] MEDS: APIXABAN 5 MG TABLET PO SCH (07:50)
[2020-12-29] MEDS: METHYLPREDNISOLONE 125 MG INJ IV SCH ×2 (07:50→13:35)
[2020-12-29] MEDS: HOME MED 1 EA UNK (Bupropion Hcl [Wellbutrin Sr] 100 MG Tablet.Er) PO SCH (07:51)
[2020-12-29] MEDS: ENSURE HIGH PROTEIN 237 ML CAN PO SCH (07:52)
[2020-12-29 12:19] VITALS: TEMP 97.6
[2020-12-29 12:38] VITALS: BP 98/56
--- NOTE | 2020-12-29 14:29 | P.DS ---
Admission Date: 12/20/20 Discharge Date: 12/29/20 Disposition: ROUTINE DISCHARGE Discharge Condition: FAIR Reason for Admission: Respiratory failure due to butler virus Consultations: Pulm - Dr. Lewis Procedures: CXR (12/18): lungs are underinflated with bilateral interstitial pulmonary opacities noted suggesting viral infection. The heart is upper limit normal in size. CXR (12/20): Bilateral interstitial and alveolar opacification. Given the collective findings and current and prior provided history, bilateral COVID-19 pneumonia remains the primary consideration. Exam is limited due to the motion. Slight worsening in the lung parenchymal opacification cannot be excluded. CXR (12/21): Mild worsening in lung aeration is seen since yesterday's study. TTE (12/21): EF: 55-60%, normal wall motion. small pericardial effusion. poor windows. Problem List: Acute hypoxemic respiratory failure secondary to COVID-19 pneumonia Insulin resistance Depression Chronic back pain, on chronic pain medication Brief History of Present Illness: 55yo presents to ED a 2nd time this week with SOB/AGUILAR. COVid+ recently with worsening symptoms. Very short of breath with short ambulation. Feels like she can't take few steps without getting very winded. She reports she had elevated back in September and had mild symptoms with mostly diarrhea. Her entire family tested positive had similar courses. Now over the past week her in her entire family are now having more respiratory symptoms of coverage, and have all tested positive once again. Unclear if this is a reinfection/new infection. Patient had some improvement of symptoms when placed on O2 in ED. Labwork notable for mild hypokalemia, elevated CRP at 80, mildly elevated pro calcitonin. Patient reports diarrhea for the past few days as well. Denies dysuria, denies abdominal pain, denies chest pain. CXR with bilateral interstitial pulmonary opacities suggestive of COVID. The patient had a CTA done on 12/15 with negative PE, mild-moderate COVID pneumonia findings Hospital Course: Patient was admitted, received convalescent plasma, IV steroids, Ivermectin x 2 doses, and oxygen supplementation. She was anticoagulated on therapeutic doses of lovenox and transitioned to eliquis. Pulmonology was consulted. Remdesevir was discussed, however patient was near day 10 of her symptoms and it was >1 month since she was initially positive for COVID as well. Patient had initial worsening of respiratory status and eventual improvement. She was discharged home with home O2, prednisone, and eliquis. Patient is to f/u with Dr. Lewis in 1 week. She was maintaining SpO2 > 90% for at least 24hrs prior to discharge. Her SpO2 would drop to high 70s / low 80% with minimal movement, as typical of COVID-19 pneumonia, but would improve within minutes. Vital Signs/Physical Exam: Temp Pulse Resp BP Pulse Ox 97.6 F 79 19 98/56 L 88 L 12/29/20 12:00 12/29/20 12:10 12/29/20 12:00 12/29/20 12:10 12/29/20 12:10 General: Alert, In no apparent distress, Oriented x3 HEENT: Sclerae nonicteric Respiratory: Other (nonlabored on 4 L NC) Cardiovascular: No edema, Regular rate/rhythm Gastrointestinal: Soft and benign, Non-distended, No tenderness Musculoskeletal: No tenderness Integumentary: No rashes Neurological: Normal speech, Normal affect Laboratory Data at Discharge: WBC 12.50 K/uL (4.3-10.9) H 12/29/20 03:39 Hgb 12.5 g/dL (12.0-15.0) 12/29/20 03:39 Hct 38.9 % (36.0-45.0) 12/29/20 03:39 Plt Count 396 K/uL (152-406) 12/29/20 03:39 PT 11.7 SECONDS (9.5-12.5) 12/18/20 06:55 INR 0.99 12/18/20 06:55 Sodium 141 mmol/L (136-145) 12/29/20 03:39 Potassium 5.0 mmol/L (3.5-5.1) 12/29/20 03:39 BUN 32 mg/dL (7-18) H 12/29/20 03:39 Creatinine 0.79 mg/dL (0.55-1.3) 12/29/20 03:39 Glucose 154 mg/dL (74-106) H 12/29/20 03:39 Magnesium 2.4 mg/dL (1.8-2.4) 12/22/20 03:28 Total Bilirubin 1.0 mg/dL (0.2-1.0) 12/24/20 03:29 AST 20 U/L (15-37) 12/24/20 03:29 ALT 24 U/L (12-78) 12/24/20 03:29 Alkaline Phosphatase 81 U/L (45-117) 12/24/20 03:29 Lipase 41 U/L (73-393) L 12/18/20 06:55 Home Medications: Bupropion HCl [Wellbutrin Sr] 100 mg PO DAILY 12/18/20 Benzonatate 1 cap PO TID 12/19/20 Ergocalciferol (Vitamin D2) [Vitamin D 50,000 Unit Cap] 1 tab PO SEECOM 12/19/20 Tramadol HCl [Ultram] 1 tab PO Q6H PRN 12/19/20 Apixaban [Eliquis] 5 mg PO BID #60 tablet 12/28/20 Ascorbic Acid [Vitamin C*] 500 mg PO QID #120 tablet 12/28/20 Cholecalciferol (Vitamin D3) [Vitamin D 5,000 IU Cap*] 5,000 unit PO DAILY #30 cap 12/28/20 Guaifen W/Codeine Syrup [ROBITUSSIN A-C Syrup*] 5 ml PO QID PRN #30 ucup 12/28/20 Thiamine HCl [Vitamin B-1*] 200 mg PO BID #30 tablet 12/28/20 Zinc Sulfate [Zinc Sulfate*] 220 mg PO DAILY #30 cap 12/28/20 predniSONE [Prednisone] 1 tab PO Q12H #21 12/28/20 New Medications: Apixaban [Eliquis] 5 mg PO BID #60 tablet predniSONE [Prednisone] 1 tab PO Q12H #21 Guaifen W/Codeine Syrup [ROBITUSSIN A-C Syrup*] 5 ml PO QID PRN #30 ucup PRN Reason: Cough Thiamine HCl [Vitamin B-1*] 200 mg PO BID #30 tablet Ascorbic Acid [Vitamin C*] 500 mg PO QID #120 tablet Cholecalciferol (Vitamin D3) [Vitamin D 5,000 IU Cap*] 5,000 unit PO DAILY #30 cap Zinc Sulfate [Zinc Sulfate*] 220 mg PO DAILY #30 cap Physician Discharge Instructions: You were diagnosed with COVID-19 pneumonia. You are discharged with prednisone for 2 weeks, Eliquis (blood thinner) for 1 month. You will need to follow up with Dr. Lewis, call his office today/tomorrow to schedule appointment for 1 week from now. You will need to continue to take it easy at home. Do not over- exert yourself. You are discharged with oxygen - you were needing 4 liters per minute during the last 2-3 days of your hospitalization. If able, it is ok to increase beyond 4L for a brief time (temporary) when moving around. If your oxygen level (pulse ox) remains <88 despite on 4 L oxygen and not moving around for 20-30 minutes, it is recommended you go to the nearest ED. Diet: Regular Activity: Ad tristin Followup: Toni Lewis MD [ACTIVE - CAN ADMIT] - 1 Week (Call for appointment) NONE,NONE [Primary Care Provider] - Time spent managing pt's care (in minutes): 45
[2020-12-29 15:59] VITALS: O2SAT 91
== END 2020-12-29 16:25 | disposition home or self-care (01) | DRG 177 ==
LOC: ER 06:11 → ERHOLD 08:56 → 4TH 19:39 → OBSVTOIN 12-20 11:20
PROVIDERS: ADMIT Hospitalist; ATTEND Hospitalist
PROC: XW13325 Transfusion of Convalescent Plasma (Nonautologous) into Peripheral Vein, Percutaneous Approach, New Technology Group 5 (ICD-10-PCS; principal; 2020-12-22)
DX: U07.1 COVID-19 (principal); J12.82 Pneumonia due to coronavirus disease 2019; J96.01 Acute respiratory failure with hypoxia; E87.6 Hypokalemia; G89.29 Other chronic pain; M54.9 Dorsalgia, unspecified; F32.9 Major depressive disorder, single episode, unspecified; Z16.39 Resistance to other specified antimicrobial drug; Z79.899 Other long term (current) drug therapy; Z90.710 Acquired absence of both cervix and uterus; Z90.49 Acquired absence of other specified parts of digestive tract; Z79.891 Long term (current) use of opiate analgesic; Z79.52 Long term (current) use of systemic steroids; Z79.01 Long term (current) use of anticoagulants
CPT/HCPCS: 36415; 71045; 80048; 80053; 80076; 81003; 82728; 82805; 82947; 83690; 83735; 83880; 84132; 84145; 84439; 84443; 84484; 85025; 85027; 85610; 86140; 86900; 86901; 86927; 87040; 87086; 87088; 93005; 93306; 94002; 94003; 94760; 96361; 96365; 96372; 96375; 99285; J0456; J0696; J1100; J1940; J2405; J2930; J3480; J7030; J7050